=== PATIENT | male | born 1960 | race Caucasian/White ===

== ENCOUNTER → 2019-12-16 10:25 | Outpatient (CLI) | payer OTHER, SELFPAY ==
--- NOTE | 2019-12-16 10:27 | DI.RAD.S_ITS ---
PROCEDURE: XR KNEE LT 3V INDICATIONS: left knee pain TECHNIQUE: 3 views of the knee were acquired. COMPARISON: None. FINDINGS: Bones: No fractures or dislocations. No suspicious bony lesions. Soft tissues: Small, nonspecific suprapatellar joint effusion. No suspicious soft tissue calcifications. IMPRESSION: No fracture. No osseous lesion. If symptoms and/or clinical suspicion for pathology persists, further assessment with repeat radiographs (7-10 days) or advanced imaging (e.g. CT, MRI or bone scan) may be helpful. Dictated by: Sade Candelario MD, PhD on 12/16/2019 at 15:43 Approved by: Sade Candelario MD, PhD on 12/16/2019 at 15:53
== END ==
PROVIDERS: PCP Family Medicine; Referring Provider Nurse Practitioner Family; Visit Provider Nurse Practitioner Family
DX: S89.92XA Unspecified injury of left lower leg, initial encounter (principal); M25.562 Pain in left knee; X58.XXXA Exposure to other specified factors, initial encounter
CPT/HCPCS: 73562

== ENCOUNTER 2020-03-01 15:15 | Outpatient (RCR) | payer OTHER, SELFPAY ==
--- NOTE | 2020-01-29 16:45 | PT.OIE ---
Current Diagnoses Unspecified injury of left lower leg, initial encounter (01/29/20) Past Medical History (Last Updated 12/16/19 @ 10:08 by RAYMON Robles) Left knee injury (Acute) Visit Care Team Role Provider Type Fito Rodriguez MD Primary Care Provider Physician Specialty: [facility] Address: [address] [place] [address], [id number] Email: [email or web address] RAYMON Robles Attending Provider Advanced Guest Attendant Referring Provider Specialty: [facility] Address: [address] [place] [address], [id number] Email: [email or web address] Physical Therapy Initial Evaluation PT-OP-A Visit Information Start: 01/29/20 14:17 Freq: Status: Active Protocol: Document 01/29/20 15:15 HH (Rec: 01/29/20 16:44 [email or web address]) Out-Patient Physical Therapy Visit Information Visit Information Visit Type Initial Evaluation Visit Start Time 15:15 Visit Stop Time 16:00 Total Visit Minutes 45 Visit Number 08/02 Number of CONCERT OR LECTURE HALL MANAGER Visits 0 Evaluation Information Evaluation Date 01/29/20 PT-OP-B Current Condition Start: 01/29/20 14:17 Freq: Status: Active Protocol: Document 01/29/20 15:15 HH (Rec: 01/29/20 16:44 [email or web address]) Current Condition History of Current Condition Onset Date early December, Current Complaints L knee pain, difficulty in walking History of Current Condition Pt is a 59 yo active gentleman here for his new onset of L knee pain. Pt injured his L knee and heard a pop after jumping from 1 level to another at his friend's garden in early December. Pt stated his knee swelled up immediately for couple days with ROM loss. Pt described his pain 2/10 located mostly posterior and deep inside on the knee. Prolonged walking and standing tend to increase his pain up to 3-4/10. He denied buckling/ unsteadiness but mostly pressure and stiffness. 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 Pt started biking again 2 weeks since his symptoms and ROM have been slowly progressing. Prior Treatments and Tests X-ray from last month showed negative findings. No fracture. No osseous lesion. If symptoms and/or clinical suspicion for pathology persists, further assessment with repeat radiographs (7-10 days) or advanced imaging (e.g. CT, MRI or bone scan) may be helpful. Treatment Goals Patient/Caregiver Goals 1. to reduce his swelling and be pain free again 2. to be able to walk 2-3 miles again everyday Personal Factors Other Personal Factors That May Effect depression Therapy/Recovery PT-OP-C Subjective Start: 01/29/20 14:17 Freq: Status: Active Protocol: Document 01/29/20 15:15 HH (Rec: 01/29/20 16:44 [email or web address]) Patient Questionnaires Lower Extremity Functional Scale LEFS Score 52 LEFS Impairment 20 to 39% Impaired (Score 48- 62) OP-PT Pain Assessment Location L knee Pain Location Details L knee Intensity 2 Scale Used Numeric (0 - 10) Description Aching,Pressure Frequency Frequent Pain Aggravating Factors Activity,Exercise,Standing, Walking Pain Alleviating Factors Inactivity PT-OP-D Balance Start: 01/29/20 14:17 Freq: Status: Active Protocol: Document 01/29/20 15:15 HH (Rec: 01/29/20 16:44 [email or web address]) Balance Tests Single Limb Standing Single Limb- Right >60 Single Limb- Left 32 Other Other Balance Tests Performed excessive ankle strategy noted on L PT-OP-E Functional Tests Start: 01/29/20 14:17 Freq: Status: Active Protocol: Document 01/29/20 15:15 HH (Rec: 01/29/20 16:44 [email or web address]) Functional Tests Other star excursion Comment standing on RLE: fwd= 21, lateral= 30; on LLE: fwd= 20 , lateral=23 PT-OP-H Neuro Start: 01/29/20 14:17 Freq: Status: Active Protocol: Document 01/29/20 15:15 HH (Rec: 01/29/20 16:44 [email or web address]) Deep Tendon Reflex & Clonus Assessment Deep Tendon Reflex Bilateral Achilles Deep Tendon Reflex 2+ Normal Bilateral Patellar Deep Tendon Reflex 2+ Normal PT-OP-J Posture/Palpation/Skin Start: 01/29/20 14:17 Freq: Status: Active Protocol: Document 01/29/20 15:15 (Rec: 01/29/20 16:44 [email or web address]) Skin Assessment Circumference Measurement R knee Comments 5cm above knee= 14, patella= 13.5, tibial tub= 12.5 L knee Comments 5cm above knee= 14.5, patella= 14, tibial tub= 12.7 PT-OP-K Range of Motion Start: 01/29/20 14:17 Freq: Status: Active Protocol: Document 01/29/20 15:15 HH (Rec: 01/29/20 16:44 [email or web address]) Knee Goniometric Range of Motion Knee Right Knee ROM WFL Yes Flexion Active (degrees) 135 Extension Active (degrees) 4 Left Knee ROM WFL No Patient Position Supine Flexion Active (degrees) 115 Extension Active (degrees) 8 Knee ROM Limitations Knee ROM Limitations Pain Comments pain noted for end range L knee flexion and extensoin PT-OP-L Special Tests Start: 01/29/20 14:17 Freq: Status: Active Protocol: Document 01/29/20 15:15 HH (Rec: 01/29/20 16:44 [email or web address]) Special Tests Knee Special Tests David's Test Results -ve Anterior Draw Test Results -ve Apley's Compression Test Results -ve Albert Test Test Results -ve Thessaly Test 20 Degrees Test Results -ve Thessaly Test 5 Degrees Test Results -ve Varus- 25 Degrees Test Results -ve Varus- 0 Degrees Test Results -ve Valgus- 25 Degrees Test Results -ve Valgus- 0 Degrees Test Results -ve PT-OP-M Strength Start: 01/29/20 14:17 Freq: Status: Active Protocol: Document 01/29/20 15:15 HH (Rec: 01/29/20 16:44 [email or web address]) Knee Strength Knee Manual Muscle Testing Right Flexion (S2) 5 Normal Extension (L3) 5 Normal Left Flexion (S2) 4+ Good+ Extension (L3) 4+ Good+ PT-OP-Q Treatments Start: 01/29/20 14:17 Freq: Status: Active Protocol: Document 01/29/20 15:15 HH (Rec: 01/29/20 16:44 [email or web address]) Therapeutic Exercises Supine Exercises heel slide Side left Comments for HEP TkE Side left Equipment Used towel underneath heel Comments for HEP Sidelying Exercises clamshell Side left Comments for hep Standing Exercises toe tap Standing Exercise Name SLS Side left Comments for hEP Manual Therapy Treatment Soft Tissue Mobilization L knee Body Location anterior and posterior Mobilization Type Rolling,Sustained Pressure, Trigger Point Release Intensity/Depth Deep Comments prone and supine position. upward stroke and rolling for swelling management. pt's knee flexion improved to 125 degrees Joint Mobilizations tibial IR Joint MWM and knee joint Direction IR Grade III Body Position Supine Reps/Duration 10 reps x 3 Comments knee flexion with tibial IR PT-OP-T Assessment and Plan Start: 01/29/20 14:17 Freq: Status: Active Protocol: Document 01/29/20 15:15 HH (Rec: 01/29/20 16:44 [email or web address]) Physical Therapy Assessment Rehab Potential Rehabilitation Potential Excellent Evaluation Complexity Number of Personal Factors/Comorbidities 0 Number of Body Systems Impaired 1-2 Clinical Presentation at Evaluation Stable Impairments Impairments Activity Tolerance,Balance, Functional Activities, Functional Mobility,Gait,Pain, Posture,ROM,Soft Tissue Mobility,Strength Goals return to sports Impairment pain with prolonged walking and hiking Detention Goal (LTG) pt will be able to return to his daily walking rountine for 2-3 miles a day without discomfort. LTG Duration 4 weeks balance Impairment dec single leg balance noted Short Term Goal (STG) pt will increase his SL balance >50 seconds STG Duration 2 weeks Detention Goal (LTG) Pt will improve his star excursion by 4 inches for both fwd and lateral directions so he can walk on uneven surface safely without discomfort LTG Duration 4weeks ROM Impairment pt lacks of knee AROM Detention Goal (LTG) Pt will regain full AROM for his L knee so he can optimize his gait mechanics with improved heel strike and push off. LTG Duration 4 weeks LEFS Impairment pt scores 52 on LEFS Detention Goal (LTG) Pt will score 70 or greater for LEFS to improve his quality of life LTG Duration 4 weeks Assessment Summary Assessment This is a low complexity evaluation for this healthy and active 59yo male here for L knee pain after he landed awkwardly from a jump in early December. Pt presents a possible minor meniscal strain/ tear because this PT was unable to reproduce his pain with all special tests except pain at end range of knee flexion and extension. There's noticeable swelling at L knee and poor single leg balance noted. However, pt's knee AROM improved immediately after STM for swelling management. Prescribed knee ROM, SLS, clamshell HEP for pt and pt will benefit from skilled therapy for swelling management, return to sports training, improving flexiblity , balance and strength in order for him to return to his daily 2-3 miles walking without discomfort. Physical Therapy Plan Frequency and Duration Frequency of Treatment Every Other Week Duration of Treatment 4 weeks Plan of Care Start Date 01/29/20 Plan of Care End Date 02/28/20 Therapeutic Interventions Therapeutic Interventions Balance Training,Gait Training ,Home Exercise Program,Joint Mobilizations,Manual Therapy, Neuromuscular Re-education, Patient/Caregiver Education, Self-Care/Home Management,Soft Tissue Mobilization,Taping, Therapeutic Activities, Therapeutic Exercises Modalities Cold Pack/Ice Massage,Electric Stimulation,Hot Packs Next Visit Focus/Plan Next Note Type Treatment Note Next Visit Plan check tolerance ROM, biking tibial IR MWM single leg strengthening SLS
--- NOTE | 2020-01-29 16:45 | PT.OPPOC ---
Physical, Occupational & Speech Therapy At [facility] Current Diagnoses Unspecified injury of left lower leg, initial encounter (01/29/20) Visit Care Team Role Provider Type Fito Rodriguez MD Primary Care Provider Physician Specialty: [facility] Practice Address: [address] [place] [address], [id number] Email: [email or web address] RAYMON Robles Attending Provider Advanced Supervisor Heavy Equipment Referring Provider Specialty: [facility] Address: [address] [place] [address], [address] Email: [email or web address] Plan Of Care PT-OP-T Assessment and Plan Start: 01/29/20 14:17 Freq: Status: Active Protocol: Document 01/29/20 15:15 (Rec: 01/29/20 16:44 [email or web address]) Physical Therapy Assessment Rehab Potential Rehabilitation Potential Excellent Evaluation Complexity Number of Personal Factors/Comorbidities 0 Number of Body Systems Impaired 1-2 Clinical Presentation at Evaluation Stable Impairments Impairments Activity Tolerance,Balance, Functional Activities, Functional Mobility,Gait,Pain, Posture,ROM,Soft Tissue Mobility,Strength Goals return to sports Impairment pain with prolonged walking and hiking Snf Goal (LTG) pt will be able to return to his daily walking rountine for 2-3 miles a day without discomfort. LTG Duration 4 weeks balance Impairment dec single leg balance noted Short Term Goal (STG) pt will increase his SL balance >50 seconds STG Duration 2 weeks Canoe Maker Goal (LTG) Pt will improve his star excursion by 4 inches for both fwd and lateral directions so he can walk on uneven surface safely without discomfort LTG Duration 4weeks ROM Impairment pt lacks of knee AROM Snf Goal (LTG) Pt will regain full AROM for his L knee so he can optimize his gait mechanics with improved heel strike and push off. LTG Duration 4 weeks LEFS Impairment pt scores 52 on LEFS Canoe Maker Goal (LTG) Pt will score 70 or greater for LEFS to improve his quality of life LTG Duration 4 weeks Assessment Summary Assessment This is a low complexity evaluation for this healthy and active 59yo male here for L knee pain after he landed awkwardly from a jump in early December. Pt presents a possible minor meniscal strain/ tear because this PT was unable to reproduce his pain with all special tests except pain at end range of knee flexion and extension. There's noticeable swelling at L knee and poor single leg balance noted. However, pt's knee AROM improved immediately after STM for swelling management. Prescribed knee ROM, SLS, clamshell HEP for pt and pt will benefit from skilled therapy for swelling management, return to sports training, improving flexiblity , balance and strength in order for him to return to his daily 2-3 miles walking without discomfort. Physical Therapy Plan Frequency and Duration Frequency of Treatment Every Other Week Duration of Treatment 4 weeks Plan of Care Start Date 01/29/20 Plan of Care End Date 02/28/20 Therapeutic Interventions Therapeutic Interventions Balance Training,Gait Training ,Home Exercise Program,Joint Mobilizations,Manual Therapy, Neuromuscular Re-education, Patient/Caregiver Education, Self-Care/Home Management,Soft Tissue Mobilization,Taping, Therapeutic Activities, Therapeutic Exercises Modalities Cold Pack/Ice Massage,Electric Stimulation,Hot Packs Next Visit Focus/Plan Next Note Type Treatment Note Next Visit Plan check tolerance ROM, biking tibial IR MWM single leg strengthening SLS Plan of Care Dates Plan of Care Start Date 01/29/20 Plan of Care End Date 02/28/20 Electronically Signed by: Joy Trevino, PT 01/29/20 1280 Please Sign and Return: I have reviewed this Plan of Care and certify that the skilled therapy services above are required to meet the patient?s needs. Physician Signature Date Printed Name and Credentials Clinical Instructor Signature Printed Name and Credentials
--- NOTE | 2020-02-11 18:09 | PT.OTN ---
Current Diagnoses Unspecified injury of left lower leg, initial encounter (02/11/20) Physical Therapy Treatment Note PT-OP-A Visit Information Start: 01/29/20 14:17 Freq: Status: Active Protocol: Document 02/11/20 18:01 [facility] (Rec: 02/11/20 18:09 [facility] [email or web address]) Out-Patient Physical Therapy Visit Information Visit Information Visit Type Treatment Note Visit Start Time 16:47 Visit Stop Time 17:32 Total Visit Minutes 45 Visit Number 09/02 Number of HAND ALTERATIONS SEAMSTRESS Visits 0 PT-OP-B Current Condition Start: 01/29/20 14:17 Freq: Status: Active Protocol: Document 01/29/20 15:15 HH (Rec: 01/29/20 16:44 HH [email or web address]) Current Condition History of Current Condition Onset Date early December, Current Complaints L knee pain, difficulty in walking History of Current Condition Pt is a 59 yo active gentleman here for his new onset of L knee pain. Pt injured his L knee and heard a pop after jumping from 1 level to another at his friend's garden in early December. Pt stated his knee swelled up immediately for couple days with ROM loss. Pt described his pain 2/10 located mostly posterior and deep inside on the knee. Prolonged walking and standing tend to increase his pain up to 3-4/10. He denied buckling/ unsteadiness but mostly pressure and stiffness. 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 Pt started biking again 2 weeks since his symptoms and ROM have been slowly progressing. Prior Treatments and Tests X-ray from last month showed negative findings. No fracture. No osseous lesion. If symptoms and/or clinical suspicion for pathology persists, further assessment with repeat radiographs (7-10 days) or advanced imaging (e.g. CT, MRI or bone scan) may be helpful. Treatment Goals Patient/Caregiver Goals 1. to reduce his swelling and be pain free again 2. to be able to walk 2-3 miles again everyday Personal Factors Other Personal Factors That May Effect depression Therapy/Recovery PT-OP-C Subjective Start: 01/29/20 14:17 Freq: Status: Active Protocol: Document 02/11/20 18:01 [facility] (Rec: 02/11/20 18:09 [facility] [email or web address]) OP-PT Subjective Patient Comments Patient Comments Pt reports he is doing better but still has difficulty with knee ext. R achilles is giving him trouble and he is massaging that but that seems to affect his gait also. PT-OP-D Balance Start: 01/29/20 14:17 Freq: Status: Active Protocol: Document 01/29/20 15:15 HH (Rec: 01/29/20 16:44 [email or web address]) Balance Tests Single Limb Standing Single Limb- Right >60 Single Limb- Left 32 Other Other Balance Tests Performed excessive ankle strategy noted on L PT-OP-E Functional Tests Start: 01/29/20 14:17 Freq: Status: Active Protocol: Document 01/29/20 15:15 HH (Rec: 01/29/20 16:44 [email or web address]) Functional Tests Other star excursion Comment standing on RLE: fwd= 21, lateral= 30; on LLE: fwd= 20 , lateral=23 PT-OP-H Neuro Start: 01/29/20 14:17 Freq: Status: Active Protocol: Document 01/29/20 15:15 HH (Rec: 01/29/20 16:44 [email or web address]) Deep Tendon Reflex & Clonus Assessment Deep Tendon Reflex Bilateral Achilles Deep Tendon Reflex 2+ Normal Bilateral Patellar Deep Tendon Reflex 2+ Normal PT-OP-J Posture/Palpation/Skin Start: 01/29/20 14:17 Freq: Status: Active Protocol: Document 01/29/20 15:15 HH (Rec: 01/29/20 16:44 [email or web address]) Skin Assessment Circumference Measurement R knee Comments 5cm above knee= 14, patella= 13.5, tibial tub= 12.5 L knee Comments 5cm above knee= 14.5, patella= 14, tibial tub= 12.7 PT-OP-K Range of Motion Start: 01/29/20 14:17 Freq: Status: Active Protocol: Document 01/29/20 15:15 HH (Rec: 01/29/20 16:44 [email or web address]) Knee Goniometric Range of Motion Knee Right Knee ROM WFL Yes Flexion Active (degrees) 135 Extension Active (degrees) 4 Left Knee ROM WFL No Patient Position Supine Flexion Active (degrees) 115 Extension Active (degrees) 8 Knee ROM Limitations Knee ROM Limitations Pain Comments pain noted for end range L knee flexion and extensoin PT-OP-L Special Tests Start: 01/29/20 14:17 Freq: Status: Active Protocol: Document 01/29/20 15:15 HH (Rec: 01/29/20 16:44 HH [email or web address]) Special Tests Knee Special Tests David's Test Results -ve Anterior Draw Test Results -ve Apley's Compression Test Results -ve Albert Test Test Results -ve Thessaly Test 20 Degrees Test Results -ve Thessaly Test 5 Degrees Test Results -ve Varus- 25 Degrees Test Results -ve Varus- 0 Degrees Test Results -ve Valgus- 25 Degrees Test Results -ve Valgus- 0 Degrees Test Results -ve PT-OP-M Strength Start: 01/29/20 14:17 Freq: Status: Active Protocol: Document 01/29/20 15:15 HH (Rec: 01/29/20 16:44 HH [email or web address]) Knee Strength Knee Manual Muscle Testing Right Flexion (S2) 5 Normal Extension (L3) 5 Normal Left Flexion (S2) 4+ Good+ Extension (L3) 4+ Good+ PT-OP-Q Treatments Start: 01/29/20 14:17 Freq: Status: Active Protocol: Document 02/11/20 18:01 [facility] (Rec: 02/11/20 18:09 [facility] [email or web address]) Therapeutic Exercises Supine Exercises jos test Supine Exercise Name stretch Side left Reps/Minutes 45 sec heel slide Side left Reps/Minutes 3 Comments reviewed for HEP TkE Side left Equipment Used towel underneath heel Reps/Minutes 3 Comments reviewed for HEP Prone Exercises quad stretch Side left Reps/Minutes 30 sec Comments w/strap TKE Side left Reps/Minutes 5sec x15 Sidelying Exercises quad stretch Side left Equipment Used strap Reps/Minutes 30sec clamshell Side left Equipment Used L2 Reps/Minutes 15 Comments for hep Standing Exercises TKE Side left Equipment Used L3 Reps/Minutes 20 Manual Therapy Treatment Soft Tissue Mobilization calf Body Location L Mobilization Type Rolling,Strumming,Sustained Pressure Intensity/Depth Moderate Body Position Supine VMO Body Location L med border Mobilization Type Strumming Intensity/Depth Moderate Body Position Supine HS Body Location L w/quad sets & knee flex Mobilization Type Rolling,Strumming,Sustained Pressure Intensity/Depth Moderate Body Position Supine Joint Mobilizations Tibfem Direction PA Grade III PF Direction sup, inf, med Grade III tibial IR Joint MWM and knee joint Direction IR Grade III Body Position Supine Comments knee flexion with tibial IR Self-Care/Home Management Treatment Education Other Education use of foam roll, rolling pin & tennis ball for ITB , HS & Calf B PT-OP-T Assessment and Plan Start: 01/29/20 14:17 Freq: Status: Active Protocol: Document 02/11/20 18:01 [facility] (Rec: 02/11/20 18:09 [facility] [email or web address]) Physical Therapy Assessment Goals return to sports Impairment pain with prolonged walking and hiking Reel Winder Goal (LTG) pt will be able to return to his daily walking rountine for 2-3 miles a day without discomfort. LTG Duration 4 weeks balance Impairment dec single leg balance noted Short Term Goal (STG) pt will increase his SL balance >50 seconds STG Duration 2 weeks Penitentiary Goal (LTG) Pt will improve his star excursion by 4 inches for both fwd and lateral directions so he can walk on uneven surface safely without discomfort LTG Duration 4weeks ROM Impairment pt lacks of knee AROM Penitentiary Goal (LTG) Pt will regain full AROM for his L knee so he can optimize his gait mechanics with improved heel strike and push off. LTG Duration 4 weeks LEFS Impairment pt scores 52 on LEFS Reel Winder Goal (LTG) Pt will score 70 or greater for LEFS to improve his quality of life LTG Duration 4 weeks Assessment Summary Assessment Pt was able perform HEP exercises given by last therapists well and tband was added to clamshells. Pt encouraged to biek providied it was not painful. Pt started lacking about 10 deg ext and flex to about 110 and imrpoved to lacking only about 2 deg ext and about 120 deg flex after manual treatment. His gait was significantly improved after manual treatment with improved push off. Physical Therapy Plan Frequency and Duration Frequency of Treatment Every Other Week Duration of Treatment 4 weeks Plan of Care Start Date 01/29/20 Plan of Care End Date 02/28/20 Next Visit Focus/Plan Next Note Type Treatment Note Next Visit Plan check tolerance ROM, biking tibial IR MWM single leg strengthening SLS Work on tib fem jt mobility
--- NOTE | 2020-03-01 16:27 | PT.OPPOC ---
Physical, Occupational & Speech Therapy At [facility] Current Diagnoses Unspecified injury of left lower leg, initial encounter (03/01/20) Visit Care Team Role Provider Type Fito Rodriguez MD Primary Care Provider Physician Specialty: [facility] Practice Address: [address] [place] [address], [id number] Email: [email or web address] RAYMON Robles Attending Provider Advanced Brake Repair Supervisor Referring Provider Specialty: [facility] Address: [address] [place] [address], [id number] Email: [email or web address] Plan Of Care PT-OP-T Assessment and Plan Start: 01/29/20 14:17 Freq: Status: Active Protocol: Document 03/01/20 15:17 HH (Rec: 03/01/20 16:25 HH [id number]) Physical Therapy Assessment Goals return to sports Impairment pain with prolonged walking and hiking Chin Strap Cutter Goal (LTG) 03/01 goal mile pt has been walking couple miles during the week. LTG Duration 4 weeks balance Impairment dec single leg balance noted Short Term Goal (STG) pt will increase his SL balance >50 seconds STG Duration 2 weeks Chin Strap Cutter Goal (LTG) Pt will improve his star excursion by 4 inches for both fwd and lateral directions so he can walk on uneven surface safely without discomfort LTG Duration 4 weeks ROM Impairment pt lacks of knee AROM Short Term Goal (STG) 03/01 Pt L knee flexion= 130, ext = 4 actively. Jail Goal (LTG) Pt will regain full AROM for his L knee so he can optimize his gait mechanics with improved heel strike and push off. LTG Duration 4 weeks LEFS Impairment pt scores 52 on LEFS Jail Goal (LTG) Pt will score 70 or greater for LEFS to improve his quality of life LTG Duration 4 weeks Progress Towards Goals Progress Towards Goals Progressing Toward Goals Assessment Summary Assessment Pt has shown improved knee ROM and strength with minimal pain. Pt cont to have dec push off and lack of knee extension during stance phase. Tx focused on TKE, end range knee flexion, gait mechanics. he showed good understanding and requested to be d/c from PT d/t good progress and high deductible. Physical Therapy Plan Discharge Physical Therapy Discharge Reasons Patient Request Plan of Care Dates Plan of Care Start Date 01/29/20 Plan of Care End Date 02/28/20 Electronically Signed by: Joy Trevino, PT 03/01/20 [id number] Please Sign and Return: I have reviewed this Plan of Care and certify that the skilled therapy services above are required to meet the patient?s needs. Physician Signature Date Printed Name and Credentials Clinical Instructor Signature Printed Name and Credentials
--- NOTE | 2020-03-01 16:27 | PT.OTN ---
Current Diagnoses Unspecified injury of left lower leg, initial encounter (03/01/20) Physical Therapy Treatment Note PT-OP-A Visit Information Start: 01/29/20 14:17 Freq: Status: Active Protocol: Document 03/01/20 15:17 HH (Rec: 03/01/20 16:25 [id number]) Out-Patient Physical Therapy Visit Information Visit Information Visit Type Treatment Note Visit Start Time 15:17 Visit Stop Time 16:03 Total Visit Minutes 46 Visit Number 09/30 Number of CORPORATE DEVELOPMENT INTERN Visits 0 PT-OP-B Current Condition Start: 01/29/20 14:17 Freq: Status: Active Protocol: Document 01/29/20 15:15 HH (Rec: 01/29/20 16:44 HH [email or web address]) Current Condition History of Current Condition Onset Date early December, Current Complaints L knee pain, difficulty in walking History of Current Condition Pt is a 59 yo active gentleman here for his new onset of L knee pain. Pt injured his L knee and heard a pop after jumping from 1 level to another at his friend's garden in early December. Pt stated his knee swelled up immediately for couple days with ROM loss. Pt described his pain 2/10 located mostly posterior and deep inside on the knee. Prolonged walking and standing tend to increase his pain up to 3-4/10. He denied buckling/ unsteadiness but mostly pressure and stiffness. 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 Pt started biking again 2 weeks since his symptoms and ROM have been slowly progressing. Prior Treatments and Tests X-ray from last month showed negative findings. No fracture. No osseous lesion. If symptoms and/or clinical suspicion for pathology persists, further assessment with repeat radiographs (7-10 days) or advanced imaging (e.g. CT, MRI or bone scan) may be helpful. Treatment Goals Patient/Caregiver Goals 1. to reduce his swelling and be pain free again 2. to be able to walk 2-3 miles again everyday Personal Factors Other Personal Factors That May Effect depression Therapy/Recovery PT-OP-C Subjective Start: 01/29/20 14:17 Freq: Status: Active Protocol: Document 03/01/20 15:17 HH (Rec: 03/01/20 16:25 [id number]) OP-PT Subjective Patient Comments Patient Comments My ROM is getting better and swelling has improved. I still walk like a bit stiff. Patient Reported Progress Improving PT-OP-D Balance Start: 01/29/20 14:17 Freq: Status: Active Protocol: Document 01/29/20 15:15 HH (Rec: 01/29/20 16:44 [email or web address]) Balance Tests Single Limb Standing Single Limb- Right >60 Single Limb- Left 32 Other Other Balance Tests Performed excessive ankle strategy noted on L PT-OP-E Functional Tests Start: 01/29/20 14:17 Freq: Status: Active Protocol: Document 01/29/20 15:15 HH (Rec: 01/29/20 16:44 [email or web address]) Functional Tests Other star excursion Comment standing on RLE: fwd= 21, lateral= 30; on LLE: fwd= 20 , lateral=23 PT-OP-H Neuro Start: 01/29/20 14:17 Freq: Status: Active Protocol: Document 01/29/20 15:15 HH (Rec: 01/29/20 16:44 [email or web address]) Deep Tendon Reflex & Clonus Assessment Deep Tendon Reflex Bilateral Achilles Deep Tendon Reflex 2+ Normal Bilateral Patellar Deep Tendon Reflex 2+ Normal PT-OP-J Posture/Palpation/Skin Start: 01/29/20 14:17 Freq: Status: Active Protocol: Document 03/01/20 16:26 HH (Rec: 03/01/20 16:26 [id number]) Skin Assessment Circumference Measurement L knee Comments 5cm above knee= 14, patella= 14, tibial tub= 12.5 PT-OP-K Range of Motion Start: 01/29/20 14:17 Freq: Status: Active Protocol: Document 03/01/20 16:26 HH (Rec: 03/01/20 16:26 [id number]) Knee Goniometric Range of Motion Knee Right Knee ROM WFL Yes Flexion Active (degrees) 135 Extension Active (degrees) 4 Left Knee ROM WFL No Patient Position Supine Flexion Active (degrees) 130 Extension Active (degrees) 4 PT-OP-L Special Tests Start: 01/29/20 14:17 Freq: Status: Active Protocol: Document 01/29/20 15:15 HH (Rec: 01/29/20 16:44 [email or web address]) Special Tests Knee Special Tests David's Test Results -ve Anterior Draw Test Results -ve Apley's Compression Test Results -ve Albert Test Test Results -ve Thessaly Test 20 Degrees Test Results -ve Thessaly Test 5 Degrees Test Results -ve Varus- 25 Degrees Test Results -ve Varus- 0 Degrees Test Results -ve Valgus- 25 Degrees Test Results -ve Valgus- 0 Degrees Test Results -ve PT-OP-M Strength Start: 01/29/20 14:17 Freq: Status: Active Protocol: Document 01/29/20 15:15 (Rec: 01/29/20 16:44 [email or web address]) Knee Strength Knee Manual Muscle Testing Right Flexion (S2) 5 Normal Extension (L3) 5 Normal Left Flexion (S2) 4+ Good+ Extension (L3) 4+ Good+ PT-OP-Q Treatments Start: 01/29/20 14:17 Freq: Status: Active Protocol: Document 03/01/20 15:17 HH (Rec: 03/01/20 16:25 [id number]) Therapeutic Exercises Supine Exercises heel slide Side left Reps/Minutes 3 Comments reviewed for HEP TkE Side left Equipment Used towel underneath heel Reps/Minutes 3 Comments reviewed for HEP Standing Exercises toe push off Standing Exercise Name preswing phase, with big toe extension Side left Comments staggered stance for HEP TKE Side left Equipment Used L3 Reps/Minutes 20 Comments followed by step over with RLE . Manual Therapy Treatment Soft Tissue Mobilization calf Body Location L Mobilization Type Rolling,Strumming,Sustained Pressure Intensity/Depth Moderate Body Position Supine VMO Body Location L med border Mobilization Type Strumming Intensity/Depth Moderate Body Position Supine Joint Mobilizations Tibfem Direction PA Grade III PF Direction sup, inf, med Grade III tibial IR Joint MWM and knee joint Direction IR Grade III Body Position Supine Comments knee flexion with tibial IR PT-OP-T Assessment and Plan Start: 01/29/20 14:17 Freq: Status: Active Protocol: Document 03/01/20 15:17 (Rec: 03/01/20 16:25 [id number]) Physical Therapy Assessment Goals return to sports Impairment pain with prolonged walking and hiking Roller Skate Assembler Goal (LTG) 03/01 goal mile pt has been walking couple miles during the week. LTG Duration 4 weeks balance Impairment dec single leg balance noted Short Term Goal (STG) pt will increase his SL balance >50 seconds STG Duration 2 weeks Roller Skate Assembler Goal (LTG) Pt will improve his star excursion by 4 inches for both fwd and lateral directions so he can walk on uneven surface safely without discomfort LTG Duration 4 weeks ROM Impairment pt lacks of knee AROM Short Term Goal (STG) 03/01 Pt L knee flexion= 130, ext = 4 actively. Assisted Goal (LTG) Pt will regain full AROM for his L knee so he can optimize his gait mechanics with improved heel strike and push off. LTG Duration 4 weeks LEFS Impairment pt scores 52 on LEFS Assisted Goal (LTG) Pt will score 70 or greater for LEFS to improve his quality of life LTG Duration 4 weeks Progress Towards Goals Progress Towards Goals Progressing Toward Goals Assessment Summary Assessment Pt has shown improved knee ROM and strength with minimal pain. Pt cont to have dec push off and lack of knee extension during stance phase. Tx focused on TKE, end range knee flexion, gait mechanics. he showed good understanding and requested to be d/c from PT d/t good progress and high deductible. Physical Therapy Plan Discharge Physical Therapy Discharge Reasons Patient Request
--- NOTE | 2020-03-01 16:28 | PT.OPPOC ---
Physical, Occupational & Speech Therapy At [facility] Current Diagnoses Unspecified injury of left lower leg, initial encounter (03/01/20) Visit Care Team Role Provider Type Fito Rodriguez MD Primary Care Provider Physician Specialty: [facility] Practice Address: [address] [place] [address], [id number] Email: [email or web address] RAYMON Robles Attending Provider Advanced Toolroom Checker Referring Provider Specialty: [facility] Address: [address] [place] [address], [address] Email: [email or web address] Plan Of Care PT-OP-T Assessment and Plan Start: 01/29/20 14:17 Freq: Status: Active Protocol: Document 03/01/20 15:17 HH (Rec: 03/01/20 16:25 HH [id number]) Physical Therapy Assessment Goals return to sports Impairment pain with prolonged walking and hiking Trade Analyst Goal (LTG) 03/01 goal mile pt has been walking couple miles during the week. LTG Duration 4 weeks balance Impairment dec single leg balance noted Short Term Goal (STG) pt will increase his SL balance >50 seconds STG Duration 2 weeks Trade Analyst Goal (LTG) Pt will improve his star excursion by 4 inches for both fwd and lateral directions so he can walk on uneven surface safely without discomfort LTG Duration 4 weeks ROM Impairment pt lacks of knee AROM Short Term Goal (STG) 03/01 Pt L knee flexion= 130, ext = 4 actively. Intermediate Goal (LTG) Pt will regain full AROM for his L knee so he can optimize his gait mechanics with improved heel strike and push off. LTG Duration 4 weeks LEFS Impairment pt scores 52 on LEFS Intermediate Goal (LTG) Pt will score 70 or greater for LEFS to improve his quality of life LTG Duration 4 weeks Progress Towards Goals Progress Towards Goals Progressing Toward Goals Assessment Summary Assessment Pt has shown improved knee ROM and strength with minimal pain. Pt cont to have dec push off and lack of knee extension during stance phase. Tx focused on TKE, end range knee flexion, gait mechanics. he showed good understanding and requested to be d/c from PT d/t good progress and high deductible. Physical Therapy Plan Frequency and Duration Frequency of Treatment 1x/Week Duration of Treatment 1 visit Plan of Care Start Date 02/28/20 Plan of Care End Date 03/01/20 Therapeutic Interventions Therapeutic Interventions Balance Training,Gait Training ,Home Exercise Program,Joint Mobilizations,Manual Therapy, Neuromuscular Re-education, Patient/Caregiver Education, Self-Care/Home Management,Soft Tissue Mobilization,Taping, Therapeutic Activities, Therapeutic Exercises Discharge Physical Therapy Discharge Reasons Patient Request Plan of Care Dates Plan of Care Start Date 02/28/20 Plan of Care End Date 03/01/20 Electronically Signed by: Joy Trevino, PT 03/01/20 5725 Please Sign and Return: I have reviewed this Plan of Care and certify that the skilled therapy services above are required to meet the patient?s needs. Physician Signature Date Printed Name and Credentials Clinical Instructor Signature Printed Name and Credentials
== END 2020-03-03 08:31 ==
LOC: PHYS 15:15
PROVIDERS: PCP Family Medicine; Referring Provider Nurse Practitioner Family; Visit Provider Nurse Practitioner Family
DX: S89.92XA Unspecified injury of left lower leg, initial encounter (principal)
CPT/HCPCS: 97110; 97140; 97161

== ENCOUNTER → 2020-04-19 07:30 | Outpatient (CLI) | payer OTHER, SELFPAY ==
[2020-04-19 08:36] LABS: Add Manual Diff / Slide Review NO; Basophils Absolute Auto 100 /uL (0-100); Basophils Percent Auto 0.7 % (0-2); Eosinophils Absolute Auto 200 /uL (0-450); Eosinophils Percent Auto 2.3 % (2-4); Hematocrit 45.4 % (41-53); Hemoglobin 15.4 g/dL (13.5-17.5); Lymphocytes Absolute Auto 1500 /uL (1100-4500); Lymphocytes Percent Auto 21.4 % (25-40); Mean Corpuscular HGB Conc 33.9 % (30-36); Mean Corpuscular Hemoglobin 30.2 PG (26-34); Mean Corpuscular Volume 88.9 fL (80-100); Monocytes Absolute Auto 700 /uL (0-900); Neutrophils Absolute Auto 4700 /uL (1500-7000); Neutrophils Percent Auto 65.6 % (50-75); Platelet Count 264 X10^3/uL (150-400); Red Cell Distribution Width 13.4 % (11.6-14.8); White Blood Cell Count 7.1 X10^3/uL (4.5-11.0)
[2020-04-19 08:55] LABS: Alanine Aminotransferase 20 IU/L (<50); Albumin 4.3 g/dL (3.5-5.0); Albumin Globulin Ratio 1.3 (1.0-2.8); Alkaline Phosphatase 57 U/L (38-126); Aspartate Aminotransferase 27 IU/L (17-59); BUN Creatinine Ratio 16.5 (6-22); Bilirubin Total 0.7 mg/dL (0.2-1.3); Blood Urea Nitrogen 16 mg/dL (9-20); Calcium 9.5 mg/dL (8.4-10.2); Carbon Dioxide 33 mmol/L (22-32); Chloride 103 mmol/L (98-107); Cholesterol 194 mg/dL (140-199); Estimated Glomerular Filt Rate > 60.0 mL/min (>60); Globulin 3.3 g/dL (1.7-4.1); Glucose 95 mg/dL (70-100); HDL Cholesterol 67 mg/dL (40-60); HEMOLYSIS 16 (0-50); LDL Cholesterol Calculated 108 mg/dL (<100); Potassium 4.5 mmol/L (3.4-5.1); Sodium 140 mmol/L (137-145); Total Protein 7.6 g/dL (6.3-8.2); Triglycerides 93 mg/dL (35-150)
[2020-04-19 09:23] LABS: Prostate Specific Antigen Scrn 1.15 ng/mL (0.1-4.0)
== END ==
PROVIDERS: PCP Family Medicine; Referring Provider Family Medicine; Visit Provider Family Medicine
DX: Z00.00 Encounter for general adult medical examination without abnormal findings (principal); E78.2 Mixed hyperlipidemia; Z12.5 Encounter for screening for malignant neoplasm of prostate
CPT/HCPCS: 36415; 80053; 80061; 85025; G0103

== ENCOUNTER → 2020-05-24 09:19 | Outpatient (CLI) | payer OTHER, SELFPAY ==
[2020-05-24 10:32] LABS: COVID19 -Nasal RAPID Negative (Negative)
== END ==
PROVIDERS: PCP Family Medicine; Visit Provider Surgery
DX: Z11.59 Encounter for screening for other viral diseases (principal)
CPT/HCPCS: 87635; C9803

== ENCOUNTER 2020-05-25 11:59 | Day surgery (SDC) | payer OTHER, SELFPAY ==
[2020-05-25] MEDS: SODIUM CHLORIDE 0.9% 1,000 ML 200 ML IV (12:28)
[2020-05-25 12:29] VITALS: BP 135/88; PULSE 74; RESP 14; TEMP 36.4; O2SAT 97; BMI 22.4
--- NOTE | 2020-05-25 13:25 | P.HP_ITS ---
History of Present Illness History of Present Illness Date Patient Seen: 05/25/20 Time Patient Seen: 13:25 Chief complaint: [facility] [place] Narrative: This is a 59 yo man who is here for his first screening colonoscopy. He denies any symptoms of melena, hematochezia, unexplained abdominal pain, unexplained weight loss. He denies any known personal or family history of colon polyps or colon cancers. He says he is otherwise quite healthy. He denies any cardiac problems, or difficulties with sedation during his prior surgical procedures. ROS: Positive for depression, Thirteen system review is otherwise negative other than as mentioned below and in HPI. PE: GENERAL: Well groomed and cooperative. Appears stated age. Answers questions promptly and appropriately. Vital signs noted. HENT: Normocephalic, atraumatic. Hearing intact. EYES: Conjunctiva pink, sclera white, no periorbital swelling. CARDIOVASCULAR: Regular rate. No pedal edema. RESPIRATORY: Non-tachypneic, breathing comfortably on room air. GASTROINTESTINAL: Abdomen soft and non-distended GENITALURINARY: No flank tenderness. MUSCULOSKELETAL: Equal tone and mass bilaterally. SKIN: Warm, dry, soft, appropriate color for ethnicity. No other lesions, rashes, or wounds. NEURO: Alert and Oriented X 3. No gross sensory deficits, or cognitive issues. PSYCH: Appropriate affect and mood. Patient History Medical History Depression Elbow fracture Joint effusion, toe Left knee injury Family & Social History Family History Father Age: 100 Mental health problem Mother Heart disease Hypertension Mental health problem Stroke Social History: household members spouse Tobacco & Substance use: Smoking Status Never smoker alcohol intake current alcohol intake frequency a few times a week Substance Use Type does not use Meds Home Medications and Allergies Home Medications Medication Instructions Recorded Confirmed Type ibuprofen 200 mg tablet 400 mg PO Q6H PRN 12/16/19 05/25/20 History naproxen sodium 220 mg tablet 220 mg PO DAILY PRN tab 12/16/19 05/25/20 History Allergies Allergy/AdvReac Type Severity Reaction Status Date / Time No Known Drug Allergies Allergy Verified 05/25/20 12:22 Exam Vital Signs (past 8 hours): - 05/25/20 12:29 Temperature 97.6 F Pulse Rate 74 Respiratory Rate 14 Blood Pressure 135/88 Pulse Oximetry 97 Oxygen Delivery Method Room Air Assessment & Plan Assessment and plan (1) At average risk for colon cancer: Status: Acute Assessment & Plan narrative: Risks and benefits of screening colonoscopy and possible polypectomy were discussed with the patient including risk of bleeding, perforation, need for additional procedures, risks of anesthesia. The patient desires to proceed with the colonoscopy procedure. COVID-19 COVID-19 status: Negative Result date/Date tested (Pos, Neg/Pending): 05/24/20 Time Spent With Patient Time with patient: 15-24 minutes Quality VTE Deep Vein Thrombosis/Pulmonary Embolism Present on Admission: No
--- NOTE | 2020-05-25 13:28 | P.OP.ENDO_ITS ---
Operative Date/Time/Diagnoses Date of procedure: 05/25/20 Time of procedure: 13:36 Pre-op diagnosis: Average risk for colon cancer, 59-year-old never had a screening colonoscopy Post-op diagnosis: same (Normal colonoscopy) Procedure & Clinicians Study performed: Colonoscopy Procedural sedation performed by the endoscopist Same procedure as scheduled: Yes Indications: 59-year-old man never had a screening colonoscopy Surgeon: Jackelyn Maxwell Procedure Notes SCOAP/Timeout: Performed Procedure in detail: The patient was brought to the room and placed in left lateral decubitus position with all bony prominences padded. A time-out was performed and then the patient was given procedural sedation starting with 4 mg of Versed and 100 mcg of fentanyl. An additional 1 mg of Versed and 50 micro g of fentanyl were given during the procedure. Vitals were monitored throughout the procedure and remained stable. Once adequately sedated, the procedure was begun. A rectal exam was performed revealing no abnormalities. The colonoscope was then introduced to the rectum and advanced to the cecum in the usual fashion. The cecum was identified by the appendiceal orifice, the mucosal tri- fold, and the ileocecal valve. The scope was then retracted while rotating side to side and examining each mucosal fold. At the conclusion of the procedure retroflexion was performed and small grade 1-2 internal hemorrhoids without s tigmata of bleeding were seen. The scope was then withdrawn from the rectum the procedure was concluded. The patient tolerated the procedure well and was transferred to the PACU in stable condition. Scope withdrawal time: 8 Sedation minutes: 16 Findings: other findings (Normal colon) Specimen(s): none sent Complications: none Impression: Normal colon Post-procedure Recommendations: Colonscopy in 10 years Follow up: as needed Disposition: PACU
[2020-05-25] MEDS: MIDAZOLAM 5 MG/5 ML VIAL IV (13:34)
[2020-05-25] MEDS: fentaNYL 250 MCG/5 ML INJ IV (13:34)
[2020-05-25 13:55] VITALS: BP 118/82; PULSE 77; RESP 12; TEMP 37; O2SAT 97
[2020-05-25 14:01] VITALS: BP 127/80; PULSE 77; RESP 12; O2SAT 97
[2020-05-25 14:05] VITALS: BP 117/76; PULSE 76; RESP 12; O2SAT 97
[2020-05-25 14:10] VITALS: BP 120/76; PULSE 72; RESP 12; O2SAT 98
[2020-05-25 14:18] VITALS: BP 122/81; PULSE 71; RESP 16; TEMP 36.8; O2SAT 96
--- NOTE | 2020-05-25 14:28 | SUR.PHASEII ---
Pt up and ambulating getting dressed now. All dc instructions given and pt verbalizes understanding
--- NOTE | 2020-05-25 14:31 | SUR.PHASEII ---
Wes called but no answer, voicemail message left
== END 2020-05-25 14:51 | disposition home or self-care (01) ==
PROVIDERS: PCP Family Medicine; Referring Provider Surgery; Visit Provider Surgery
PROC: 0DJD8ZZ Inspection of Lower Intestinal Tract, Via Natural or Artificial Opening Endoscopic (ICD-10-PCS; CPT 45378; principal; 2020-05-25 13:00)
DX: Z12.11 Encounter for screening for malignant neoplasm of colon (principal); F32.9 Major depressive disorder, single episode, unspecified; K64.1 Second degree hemorrhoids
CPT/HCPCS: 45378; 99152; J2250; J3010

== ENCOUNTER → 2023-12-11 08:20 | Outpatient (CLI) | payer OTHER, SELFPAY ==
[2023-12-11 09:17] LABS: Add Manual Diff / Slide Review NO; Basophils Absolute Auto 0 /uL (0-100); Basophils Percent Auto 0.6 % (0-2); Eosinophils Absolute Auto 200 /uL (0-450); Eosinophils Percent Auto 2.3 % (2-4); Hematocrit 46.2 % (41-53); Lymphocytes Absolute Auto 1500 /uL (1100-4500); Lymphocytes Percent Auto 20.3 % (25-40); Mean Corpuscular HGB Conc 34.6 % (30-36); Mean Corpuscular Hemoglobin 30.6 PG (26-34); Mean Corpuscular Volume 88.5 fL (80-100); Monocytes Absolute Auto 700 /uL (0-900); Neutrophils Absolute Auto 5100 /uL (1500-7000); Neutrophils Percent Auto 67.8 % (50-75); Platelet Count 297 X10^3/uL (150-400); Red Blood Cell Count 5.22 X10^6/uL (4.5-5.9); Red Cell Distribution Width 13.3 % (11.6-14.8); White Blood Cell Count 7.4 X10^3/uL (4.5-11.0)
[2023-12-11 09:50] LABS: Alanine Aminotransferase 28 IU/L (<50); Albumin 4.6 g/dL (3.5-5.0); Albumin Globulin Ratio 1.6 (1.0-2.8); Alkaline Phosphatase 72 U/L (38-126); Aspartate Aminotransferase 29 IU/L (17-59); BUN Creatinine Ratio 14.4 (6-22); Bilirubin Total 0.9 mg/dL (0.2-1.3); Blood Urea Nitrogen 15 mg/dL (9-20); Calcium 9.5 mg/dL (8.4-10.2); Carbon Dioxide 30 mmol/L (22-32); Chloride 104 mmol/L (98-107); Cholesterol 245 mg/dL (140-199); Estimated Glomerular Filt Rate > 60 mL/min (>60); Globulin 2.9 g/dL (1.7-4.1); Glucose 90 mg/dL (80-110); HDL Cholesterol 73 mg/dL (40-60); HEMOLYSIS < 15 (0-50); LDL Cholesterol Calculated 148 mg/dL (<100); Potassium 4.8 mmol/L (3.4-5.1); Sodium 141 mmol/L (137-145); Total Protein 7.5 g/dL (6.3-8.2); Triglycerides 119 mg/dL (35-150)
[2023-12-11 10:17] LABS: TSH w/ Reflex to FT4 3.21 uIU/mL (0.47-4.68)
[2023-12-11 10:19] LABS: Prostate Specific Antigen Scrn 1.36 ng/mL (0.1-4.0)
[2023-12-11 10:44] LABS: Hep C Virus Ab w/Reflex Quant NEGATIVE s/c (NEGATIVE)
[2023-12-12 06:53] LABS: Apolipoprotein B 109 mg/dL (<90)
== END ==
PROVIDERS: PCP Family Medicine; Referring Provider Family Medicine; Visit Provider Family Medicine
DX: N32.81 Overactive bladder (principal); E78.2 Mixed hyperlipidemia; F32.9 Major depressive disorder, single episode, unspecified; Z12.5 Encounter for screening for malignant neoplasm of prostate
CPT/HCPCS: 36415; 80053; 80061; 82172; 84443; 85025; 86803; G0103

== ENCOUNTER → 2025-03-18 07:19 | Outpatient (CLI) | payer OTHER, SELFPAY ==
[2025-03-18 07:50] LABS: Add Manual Diff / Slide Review NO; Hematocrit 45.9 % (41-53); Hemoglobin 15.6 g/dL (13.5-17.5); Lymphocytes Absolute Auto 1600 /uL (1100-4500); Mean Corpuscular HGB Conc 33.9 % (30-36); Mean Corpuscular Hemoglobin 29.9 PG (26-34); Mean Corpuscular Volume 88.2 fL (80-100); Platelet Count 284 X10^3/uL (150-400)
[2025-03-18 08:05] LABS: Alanine Aminotransferase 24 IU/L (<50); Albumin 4.5 g/dL (3.5-5.0); Albumin Globulin Ratio 1.6 (1.0-2.8); Alkaline Phosphatase 61 U/L (38-126); Blood Urea Nitrogen 16 mg/dL (9-20); Calcium 9.6 mg/dL (8.4-10.2); Carbon Dioxide 27 mmol/L (22-32); Chloride 104 mmol/L (98-107); Cholesterol 217 mg/dL (140-199); Estimated Glomerular Filt Rate > 60 mL/min (>60); Globulin 2.9 g/dL (1.7-4.1); Glucose 92 mg/dL (70-99); HDL Cholesterol 73 mg/dL (40-60); HEMOLYSIS 27 (0-50); Potassium 4.8 mmol/L (3.4-5.1); Sodium 138 mmol/L (137-145); Total Protein 7.4 g/dL (6.3-8.2); Triglycerides 88 mg/dL (35-150)
[2025-03-18 08:33] LABS: TSH w/ Reflex to FT4 3.29 uIU/mL (0.47-4.68)
== END ==
PROVIDERS: PCP Family Medicine; Referring Provider Family Medicine; Visit Provider Family Medicine
DX: Z00.00 Encounter for general adult medical examination without abnormal findings (principal); E78.2 Mixed hyperlipidemia; F32.9 Major depressive disorder, single episode, unspecified; M72.2 Plantar fascial fibromatosis; L57.0 Actinic keratosis; Z12.5 Encounter for screening for malignant neoplasm of prostate
CPT/HCPCS: 36415; 80053; 80061; 82172; 84443; 85025; G0103

== ENCOUNTER 2025-04-19 10:19 | Observation (INO) | payer OTHER, SELFPAY ==
[2025-04-19] VITALS (21 sets, daily range): BP systolic 91–153; BP diastolic 54–118; PULSE 88–146; RESP 15–46; TEMP 36.2–38.4; O2SAT 82–97; BMI 23.9
--- NOTE | 2025-04-19 11:00 | EKG_ITS ---
[facility] [address] [address] Test Date: 2025-04-19 Pat Name: Marco Athens Department: [facility] Room: Gender: Male Bus Transportation Manager: JENNIFER : 1960 Requested By: Order Number: [id number] Reading MD: Bigg Christine MD Measurements Intervals [place] Rate: 102 P: 51 ID: [id number] QRS: 19 QRSD: 108 T: 41 QT: 336 QTc: 437 Interpretive Statements Sinus tachycardia Nonspecific T wave abnormality Electronically Signed On 04-19-2025 13:52:21 PDT by Bigg Christine MD
--- NOTE | 2025-04-19 11:00 | DI.RAD.S_ITS ---
PROCEDURE: XR CHEST 1V INDICATIONS: suspected sepsis TECHNIQUE: One view of the chest was acquired. COMPARISON: None. FINDINGS: Surgical changes and devices: None. Lungs and pleura: Lungs are clear. No pleural effusions or pneumothorax. Mediastinum: Mediastinal contours appear normal. Heart size is normal. Bones and chest wall: No suspicious bony lesions. Overlying soft tissues appear unremarkable. IMPRESSION: No acute cardiopulmonary abnormality is seen. Dictated by: Kun Jiang M.D. on 04/19/2025 at 11:00 Approved by: Kun Jiang M.D. on 04/19/2025 at 11:00
--- NOTE | 2025-04-19 11:12 | ED_ITS ---
HPI - Sepsis General Chief Complaint: Upper Respiratory Symptoms Mode of arrival: Ambulatory Source: patient Limitations: no limitations Evaluation Sepsis Screen: Possible Sepsis Risk Sepsis Infection Criteria Present: Suspected New Infection Sepsis Onset Time: 11:13 Narrative: 64-year-old gentleman history of anxiety, depression, dyslipidemia, presents with fever chills body aches temperature of 102and 104 since Sunday along with dry nonproductive cough unable to hold anything down with no decreased appetite. Patient denies nausea, vomiting, diarrhea, chest pain, shortness of breath, dyspnea on exertion, leg pain, leg swelling, back pain, abdominal pain, urinary complaints. Nothing makes it better or worse. Other than what is stated 14 point review system is negative. Review of Systems Review of Systems ROS Unobtainable: All systems reviewed & are unremarkable except as noted in HPI and below Patient History Medical History (Updated 04/19/25 @ 18:12 by Bigg Lay DO) Neoplasm of uncertain behavior of skin Plantar fasciitis of left foot OAB (overactive bladder) Elbow fracture Joint effusion, toe Depression Left knee injury Family History Father Age: 100 Mental health problem Mother Heart disease Hypertension Mental health problem Stroke Social History household members: spouse Smoking Status: Never smoker alcohol intake: current Smoking Status: Never smoker alcohol intake frequency: a few times a week Exam Narrative Exam Narrative: GENERAL: [64] year old patient appears stated age. Well-developed patient, in mild distress. HEAD: Atraumatic. Normocephalic. EYES: Pupils equal round and reactive. Extraocular motions intact. No scleral icterus. No injection or drainage. ENT: Nose without bleeding, purulent drainage. Throat without erythema, tonsillar hypertrophy or exudate. Airway patent. NECK: Trachea midline. Non tender CARDIOVASCULAR: Tachycardic Regular rate and rhythm without murmurs, gallops, or rubs. RESPIRATORY: Clear to auscultation. Breath sounds equal bilaterally. No wheezes, rales, or rhonchi. GASTROINTESTINAL: Abdomen soft, non-tender, nondistended. EXTREMITIES: No edema or joint tenderness. BACK: Nontender without deformity or crepitance. No flank tenderness. NEURO: AOx3. SKIN: No rash or erythema of visible areas Initial Vital Signs Initial Vital Signs: Vital Signs Temperature 98.7 F 04/19/25 10:54 Pulse Rate 111 H 04/19/25 10:54 Respiratory Rate 20 04/19/25 10:54 Blood Pressure 125/76 04/19/25 10:54 Pulse Oximetry 96 04/19/25 10:54 Oxygen Delivery Method Room Air 04/19/25 10:54 Course Orders Ordered: ED Orders 04/19/25 11:00 XR chest 1V Stat EKG-12 Lead Stat 04/19/25 11:05 Complete Blood Count AUTO DIFF Stat Comprehensive Metabolic Panel Stat Covid-19 + FLU A/B + RSV - PCR Stat Ictotest Urine Stat Lactate (Lactic Acid) Stat Lipase Stat PTT Partial Thromboplastin Jose C Stat Procalcitonin Stat Prothrombin Time INR Stat Urinalysis and Microscopic Stat 04/19/25 11:11 RT Consult Eval and Treat NOW 04/19/25 11:40 Blood Culture Stat Acetaminophen (Acetaminophen 325 Mg Tablet) 650 mg PO Q6H PRN PRN Reason: Fever/Mild Pain (1-3) Albuterol (Albuterol 2.5 Mg/3 Ml Neb (Adult)) 2.5 mg INH [id number] PRN PRN Reason: Shortness Of Breath Sodium Chloride (Normal Saline 0.9%) 1,000 mls @ 100 mls/hr IV CONT TICO Last Admin: 04/19/25 16:46 Dose: 100 mls/hr Documented By: DARIUS Azithromycin 500 mg/ Dextrose 250 mls @ 250 mls/hr IV Q24H [facility] Stop: 04/21/25 16:29 Last Admin: 04/19/25 16:46 Dose: 250 mls/hr Documented By: AKT Ceftriaxone Sodium 1,000 mg/ (Sodium Chloride) 100 mls @ 200 mls/hr IV Q24H [facility] Naloxone HCl (Naloxone 0.4 Mg/Ml Vial) 0.2 mg IV Q2MIN PRN PRN Reason: Opiate Reversal Ondansetron HCl (Ondansetron 4 Mg Odt) 4 mg PO NOW PRN PRN Reason: Nausea And Vomiting Ondansetron HCl (Ondansetron 4 Mg/2 Ml Inj) 4 mg IV Q8HR PRN PRN Reason: Nausea And Vomiting Discontinued Medications Acetaminophen (Acetaminophen 325 Mg Tablet) 975 mg PO NOW ONE Stop: 04/19/25 13:44 Last Admin: 04/19/25 14:13 Dose: 975 mg Documented By: DAVID Albuterol/Ipratropium (Albuterol/Ipratropium 3 Ml Ampul) 3 ml INH NOW ONE Stop: 04/19/25 13:41 Last Admin: 04/19/25 13:47 Dose: 3 ml Documented By: VERONICA Diphenhydramine HCl (Diphenhydramine 50 Mg/Ml Vial) 50 mg IV NOW ONE Stop: 04/19/25 13:50 Last Admin: 04/19/25 13:51 Dose: 50 mg Documented By: DAVID Sodium Chloride (Normal Saline 0.9%) 1,000 mls @ 1,000 mls/hr IV BOLUS ONE Stop: 04/19/25 11:59 Last Admin: 04/19/25 11:51 Dose: Not Given Documented By: CHRIS Lactated Ringer's (Lactated Ringers) 1,000 mls @ 1,000 mls/hr IV BOLUS ONE Stop: 04/19/25 12:10 Last Infusion: 04/19/25 13:18 Dose: Infused Documented By: Admin: 04/19/25 11:32 Dose: 1,000 mls/hr Documented By: DAVID Lactated Ringer's (Lactated Ringers) 1,000 mls @ 1,000 mls/hr IV BOLUS ONE Stop: 04/19/25 12:11 Last Admin: 04/19/25 13:45 Dose: 1,000 mls/hr Documented By: CHRIS Ceftriaxone Sodium 2,000 mg/ (Sodium Chloride) 100 mls @ 200 mls/hr IV NOW ONE Stop: 04/19/25 11:14 Last Infusion: 04/19/25 12:17 Dose: Infused Documented By: Admin: 04/19/25 11:32 Dose: 200 mls/hr Documented By: DAVID Ceftriaxone Sodium 1,000 mg/ (Sodium Chloride) 100 mls @ 200 mls/hr IV Q24H TICO Ceftriaxone Sodium 1,000 mg/ (Sodium Chloride) 100 mls @ 200 mls/hr IV Q24H TICO Ibuprofen (Ibuprofen 400 Mg Tablet) 800 mg PO NOW ONE Stop: 04/19/25 13:44 Last Admin: 04/19/25 14:13 Dose: 800 mg Documented By: DAVID Methylprednisolone (Methylprednisolone Succ 125 Mg/2 Ml Vial) 125 mg IV NOW ONE Stop: 04/19/25 13:41 Last Admin: 04/19/25 13:43 Dose: 125 mg Documented By: CHRIS Ondansetron HCl (Ondansetron 4 Mg/2 Ml Inj) 4 mg IV NOW PRN PRN Reason: Nausea And Vomiting Last Admin: 04/19/25 11:32 Dose: 4 mg Documented By: DAVID Ondansetron HCl (Ondansetron 4 Mg/2 Ml Inj) 4 mg IV NOW PRN PRN Reason: Nausea And Vomiting Last Admin: 04/19/25 13:26 Dose: 4 mg Documented By: DARIUS Ondansetron HCl (Ondansetron 4 Mg Odt) 4 mg PO NOW PRN PRN Reason: Nausea And Vomiting Vital Signs Vital signs: Vital Signs - 8 hr 04/19/25 10:54 04/19/25 11:31 04/19/25 11:38 Temperature 98.7 F Pulse Rate 111 H 101 H Respiratory Rate 20 21 Blood Pressure 125/76 110/70 Pulse Oximetry 96 95 Oxygen Delivery Method Room Air Oxygen Flow Rate 04/19/25 11:38 04/19/25 12:00 04/19/25 12:00 Temperature Pulse Rate 101 H 95 H Respiratory Rate 23 19 Blood Pressure 111/69 Pulse Oximetry 96 96 Oxygen Delivery Method Oxygen Flow Rate 04/19/25 12:30 04/19/25 12:30 04/19/25 13:00 Temperature Pulse Rate 92 H Respiratory Rate 23 Blood Pressure 108/69 112/71 Pulse Oximetry 95 Oxygen Delivery Method Oxygen Flow Rate 04/19/25 13:00 04/19/25 13:30 04/19/25 13:31 Temperature Pulse Rate 96 H 145 H Respiratory Rate 25 H 46 H Blood Pressure 153/118 H Pulse Oximetry 97 88 L Oxygen Delivery Method Oxygen Flow Rate 04/19/25 13:31 04/19/25 14:00 04/19/25 14:02 Temperature Pulse Rate 145 H 146 H 144 H Respiratory Rate 38 H 30 H 24 Blood Pressure Pulse Oximetry 82 L 95 96 Oxygen Delivery Method Nasal Cannula Nasal Cannula Oxygen Flow Rate 2 2 04/19/25 14:13 04/19/25 14:25 04/19/25 14:25 Temperature 101.1 F H Pulse Rate 145 H Respiratory Rate 33 H Blood Pressure 123/58 L Pulse Oximetry 92 Oxygen Delivery Method Oxygen Flow Rate 04/19/25 14:26 04/19/25 14:26 04/19/25 14:30 Temperature Pulse Rate 143 H Respiratory Rate 34 H Blood Pressure 120/60 116/60 Pulse Oximetry 93 Oxygen Delivery Method Oxygen Flow Rate 04/19/25 14:30 Temperature Pulse Rate 143 H Respiratory Rate 32 H Blood Pressure Pulse Oximetry 92 Oxygen Delivery Method Oxygen Flow Rate Sepsis Evaluation (ED) Triage Screening Sepsis Screen: Possible Sepsis Risk Level 1 - Infection Sepsis Infection Criteria Present: Suspected New Infection Response It is my opinion that this patient have a likely infectious etiology for meeting sepsis criteria: Does Fluid calculation based on 30 mL/kg within 1hr of criteria: ABW used Antibiotics initiated within 1 hr of Sepis dx: Yes Tissue Perfusion Reassessed within 6 hrs of infusion start time: Yes Date of Tissue Perfusion Reassessment completed: 04/19/25 Time Tissue Perfusion Reassessment completed: 18:24 MDM - Sepsis Lab Data 04/19/25 11:05 04/19/25 11:05 Labs: Lab Results 04/19/25 Range/Units 11:05 WBC 11.5 H (4.5-11.0) X10^3/uL RBC 4.54 (4.5-5.9) X10^6/uL Hgb 13.6 (13.5-17.5) g/dL Hct 39.2 L (41-53) % MCV 86.4 (80-100) fL MCH 29.9 (26-34) PG MCHC 34.6 (30-36) % RDW 13.5 (11.6-14.8) % Plt Count 174 (150-400) X10^3/uL Neut % (Auto) 92.5 H (50-75) % Lymph % (Auto) 1.0 L (25-40) % [place] % (Auto) 6.0 (3-14) % Eos % (Auto) 0.1 L (2-4) % Baso % (Auto) 0.4 (0-2) % Neut # (Auto) 62854 H (1415-6074) /uL Lymph # (Auto) 100 L (3750-9381) /uL [place] # (Auto) 700 (0-900) /uL Eos # (Auto) 0 (0-450) /uL Baso # (Auto) 0 (0-100) /uL PT 13.9 H (9.4-12.5) SECONDS INR 1.2 (0.9-1.3) APTT 31 (25.1-36.5) SECONDS Sodium 128 L (137-145) mmol/L Potassium 3.6 (3.4-5.1) mmol/L Chloride 98 (98-107) mmol/L Carbon Dioxide 22 (22-32) mmol/L BUN 26 H (9-20) mg/dL Creatinine 1.32 H (0.66-1.25) mg/dL Estimated GFR > 60 (>60) mL/min BUN/Creatinine Ratio 19.7 (6-22) Glucose 141 H (70-99) mg/dL Lactate 1.3 (0.7-2.1) mmol/L Calcium 8.6 (8.4-10.2) mg/dL Total Bilirubin 2.0 H (0.2-1.3) mg/dL AST 59 (17-59) IU/L ALT 69 H (<50) IU/L Alkaline Phosphatase 90 (38-126) U/L Troponin I 0.053 H (0.01-0.034) ng/mL Total Protein 7.1 (6.3-8.2) g/dL Albumin 3.7 (3.5-5.0) g/dL Globulin 3.4 (1.7-4.1) g/dL Albumin/Globulin Ratio 1.1 (1.0-2.8) Lipase 70 (23-300) U/L Procalcitonin 17.8 H (<0.5) ng/mL Urine Color [place] Urine Appearance Clear Urine pH 5.5 (4.5-8.0) Ur Specific [place] 1.015 (1.000-1.035) Urine Protein 1+ H (Negative) Urine Glucose (UA) Negative (Negative) g/dL Urine Ketones Negative (NEGATIVE) Urine Occult Blood Trace-intact (Negative) Urine Nitrate Negative (Negative) Urine Bilirubin 1+ H (NEGATIVE) Ur Bilirubin Confirm Negative (Negative) Urine Urobilinogen 2.0 H (0.2) E.U./dL Ur Leukocyte Esterase Negative (NEGATIVE) Urine RBC None seen (0-5/HPF) Urine WBC None seen (0-5/HPF) Ur Squamous Epith Cells None seen (0-5/HPF) Urine Bacteria None seen (None) Hyaline Casts 1-5/lpf (None) Ur Culture Indicated? Cult not indicated Vol Urine Centrifuged 10ml (spun) SARS-CoV-2 (PCR) Negative (Negative) Influenza A (RT-PCR) Flu a negative (NEGATIVE) Influenza B (RT-PCR) Flu b negative (NEGATIVE) RSV (PCR) Negative (Negative) Imaging Data Chest x-ray: Radiologist's Impression: [address] [address] XRay Report Signed Patient: Marco Schneider MR#: [id number] : 1960 Acct:[id number] Age/Sex: 64 / M Date of Service: 04/19/25 Loc: ED Accession Number: [id number] Procedure: XR chest 1V Ordering Provider: Bigg Lay D.O. PROCEDURE: XR CHEST 1V INDICATIONS: suspected sepsis TECHNIQUE: One view of the chest was acquired. COMPARISON: None. FINDINGS: Surgical changes and devices: None. Lungs and pleura: Lungs are clear. No pleural effusions or pneumothorax. Mediastinum: Mediastinal contours appear normal. Heart size is normal. Bones and chest wall: No suspicious bony lesions. Overlying soft tissues appear unremarkable. IMPRESSION: No acute cardiopulmonary abnormality is seen. ECG Data Interpretation: Sinus Tach HR 102 OR 158 QRS [address]-t wave change No previous EKG to compare MDM Narrative Medical decision making narrative: All lab work, vital signs, agricultural scientist note, previous ER visits, and all imaging studies reviewed. WBC 11.5 hemoglobin 13.6 platelet 174 INR 1.2 sodium 128 has not 3.6 chloride 98 respirations 22 BUN 26 creatinine 1.32 glucose 141 take acid 1.3 procalcitonin 17.8 urine showed +1 protein +1 bilirubin and 2.0 urobilinogen COVID flu RSV negative. Differential diagnosis COVID flu RSV pneumonia sepsis UTI. Patient given Rocephin, Zithromax, Tylenol, ibuprofen, Benadryl, Solu-Medrol, LR 1L bolus x 2 and NS 1L bolus x1 here case discussed with Dr. Gordon who has graciously accepted the patient for inpatient admission. Discharge Plan Departure Patient Disposition: Admitted as Observation Clinical Impression: Pneumonia Qualifiers: Pneumonia type: due to Pneumococcus Laterality: bilateral Lung location: lower lobe of lung Qualified Code(s): J13 - Pneumonia due to Streptococcus pneumoniae Admit Date/Time: 04/19/25 14:40 Admit Provider: Nicol Gordon
[2025-04-19 11:32] LABS: Add Manual Diff / Slide Review NO; Hematocrit 39.2 % (41-53); Hemoglobin 13.6 g/dL (13.5-17.5); Lymphocytes Absolute Auto 100 /uL (1100-4500); Mean Corpuscular HGB Conc 34.6 % (30-36); Mean Corpuscular Hemoglobin 29.9 PG (26-34); Mean Corpuscular Volume 86.4 fL (80-100); Platelet Count 174 X10^3/uL (150-400)
[2025-04-19] MEDS: cefTRIAXone 2,000 MG in SODIUM CHLORIDE 0.9% 100 ML 200 MG IV (11:32)
[2025-04-19] MEDS: LACTATED RINGERS 1,000 ML 1000 ML IV ×2 (11:32→13:45)
[2025-04-19] MEDS: ONDANSETRON 4 MG/2 ML INJ IV ×2 (11:32→13:26)
[2025-04-19 11:39] LABS: INR 1.2 (0.9-1.3); Prothrombin Time 13.9 SECONDS (9.4-12.5)
[2025-04-19 11:42] LABS: Alanine Aminotransferase 69 IU/L (<50); Albumin 3.7 g/dL (3.5-5.0); Albumin Globulin Ratio 1.1 (1.0-2.8); Alkaline Phosphatase 90 U/L (38-126); Blood Urea Nitrogen 26 mg/dL (9-20); Calcium 8.6 mg/dL (8.4-10.2); Carbon Dioxide 22 mmol/L (22-32); Chloride 98 mmol/L (98-107); Estimated Glomerular Filt Rate > 60 mL/min (>60); Globulin 3.4 g/dL (1.7-4.1); Glucose 141 mg/dL (70-99); HEMOLYSIS < 15 (0-50); Lipase 70 U/L (23-300); PTT Partial Thromboplastin Tim 31 SECONDS (25.1-36.5); Potassium 3.6 mmol/L (3.4-5.1); Sodium 128 mmol/L (137-145); Total Protein 7.1 g/dL (6.3-8.2)
[2025-04-19 11:43] LABS: Lactate (Lactic Acid) 1.3 mmol/L (0.7-2.1)
[2025-04-19 11:59] LABS: Procalcitonin 17.8 ng/mL (<0.5)
[2025-04-19 12:23] LABS: Influenza A - CEPHEID Flu A NEGATIVE (NEGATIVE); Influenza B - CEPHEID Flu B NEGATIVE (NEGATIVE)
[2025-04-19 12:24] LABS: COVID-19 CEPHEID 4-PLEX PCR Negative (Negative)
[2025-04-19 12:40] LABS: Appearance Urine UA CLEAR; Bilirubin Urine UA 1+ (NEGATIVE); Color Urine UA ORANGE; Glucose Urine UA NEGATIVE (Negative); Ketones Urine UA NEGATIVE (NEGATIVE); Leukocyte Esterase Urine UA NEGATIVE (NEGATIVE); Nitrite Urine UA NEGATIVE (Negative); Occult Blood Urine UA TRACE-INTACT (Negative); Protein Urine UA 1+ (Negative); Specific Gravity Urine UA 1.015 (1.000-1.035); Urobilinogen Urine UA 2.0 E.U./dL (0.2); pH Urine UA 5.5 (4.5-8.0)
[2025-04-19 12:42] LABS: Ictotest Urine Negative (Negative)
[2025-04-19 12:43] LABS: Culture Indicated Urine Cult Not Indicated
[2025-04-19] MEDS: methylPREDNISolone succ 125 MG/2 ML VIAL IV (13:43)
[2025-04-19] MEDS: ALBUTEROL/IPRATROPIUM 3 ML AMPUL INH (13:47)
[2025-04-19] MEDS: diphenhydrAMINE 50 MG/ML VIAL IV (13:51)
--- NOTE | 2025-04-19 13:52 | EKG_ITS ---
[facility] [address] [place] [address] Test Date: 2025-04-19 Pat Name: Marco Schneider Department: Room: 203 Gender: Male Transitional Care Nurse: SUZANNA : 1960 Requested By: Order Number: [id number] Reading MD: Bigg Christine MD Measurements Intervals [place] Rate: 163 P: WI: QRS: 11 QRSD: 96 T: 55 QT: 290 QTc: 477 Interpretive Statements Critical Test Result: High HR Supraventricular tachycardia ST & T wave abnormality, consider lateral ischemia Electronically Signed On 04-20-2025 7:48:40 PDT by Bigg Christine MD
--- NOTE | 2025-04-19 13:56 | EKG_ITS ---
[place] [id number], [place] [address] Test Date: 2025-04-19 Pat Name: Marco Schneider Department: Room: 203 Gender: Male [employer] Teacher: : 1960 Requested By: Order Number: [id number] Reading MD: Bigg Christine MD Measurements Intervals [place] Rate: 153 P: IA: 120 QRS: 3 QRSD: 98 T: 42 QT: 318 QTc: 507 Interpretive Statements Critical Test Result: High HR Sinus tachycardia Nonspecific T wave abnormality Electronically Signed On 04-23-2025 7:18:35 PDT by Bigg Christine MD
[2025-04-19] MEDS: IBUPROFEN 400 MG TABLET 800 MG PO (14:13)
[2025-04-19] MEDS: ACETAMINOPHEN 325 MG TABLET 975 MG PO (14:13)
--- NOTE | 2025-04-19 14:20 | PC.NURSE ---
patient tempt prior to apap and ibu/ 103.1
[2025-04-19 15:43] LABS: Troponin I 0.053 ng/mL (0.01-0.034)
[2025-04-19] MEDS: AZITHROMYCIN 500 MG in DEXTROSE 5% IN WATER 250 ML 250 MG IV (16:46)
[2025-04-19] MEDS: SODIUM CHLORIDE 0.9% 1,000 ML 100 ML IV (16:46)
--- NOTE | 2025-04-19 20:07 | PM.HP.1 ---
History of Present Illness History of Present Illness Chief complaint: Sick 4days, fever 102-104 deg, chills, no appetite Narrative: 64-year-old male with history of skin cancer, overactive bladder, depression who presented to the emergency department with 4 day history of a febrile illness. He reports he began feeling ill 4 days prior to admission. He went to work that day and felt reasonably well. That evening, he states he cooked dinner but could only eat about half of it which was unusual for him. He also fell asleep by 8:00 a.m. at night which was unusual. He states the next day he had fevers and chills alternating throughout the day. He states the next day the symptoms continued. He did take an occasional Tylenol. Yesterday he states he scheduled the Tylenol throughout the day and seemed to have improved symptoms. He states his maximum temperature yesterday was 102. The previous day it was up to 104. He thought he was getting better but today he states it increased again to 104. He called [facility] and spoke to the triage nurse who felt uncertain about the potential cause. After he spoke to the on-call physician who recommended he come to the emergency department, the patient subsequently presented here. On his arrival in the emergency department he was initially afebrile at 98.7 with a heart rate of 111, blood pressure 125/76, O2 sats 96% on room air. Over the course of his time in the emergency department, he did develop increased tachycardia up to the 160s, developed shaking chills, dry cough, and fever to 101.2. After he received treatment for his fever inclusive of acetaminophen and ibuprofen, his heart rate came down to 145. His respiratory rate was as high as 46. His oxygen saturation dropped as low as 82%. He did notably have blood pressures dropped down into the upper 90s systolic. Labs were performed which revealed a white blood cell count of 11.5, sodium was 128, creatinine was 1.32 with a BUN of 26, glucose was 141, total bilirubin was 2.0, ALT 69, troponin I 0.053, procalcitonin 17.8. Urinalysis revealed 1+ protein, 1+ bilirubin, otherwise negative. COVID, flu a, flu B, and RSV were negative. Chest x-ray was done which revealed no acute cardiopulmonary process. However, on my review there does appear to be some mild interstitial change noted in the bases. EKG revealed sinus tachycardia. Blood cultures were obtained and are presently pending. In the emergency department, he received 2 doses of IV Zofran, 1 dose of oral Zofran, 2 L of lactated Ringer's, 1 L of normal saline, ceftriaxone 2 g, azithromycin 500 mg, Solu-Medrol 125 mg IV, DuoNeb x1, acetaminophen 975 mg, ibuprofen 800 mg, Benadryl 50 mg IV. The Benadryl was given due to some concern that he had a reaction to the ceftriaxone, as he became tachycardic, tachypneic, and developed a cough. However, that was the pattern he had had at home when he developed a fever. Patient reports he has not had any ill exposures. He has had mild sore throat and mild nasal congestion. He did have some mild diarrhea at the onset of his symptoms. He does have some nausea but denies any emesis. He reports decreased appetite, decreased fluid intake. He reports significant fatigue. No dysuria, frequency, urgency, flank pain. He notes he was on a farm a week ago with friends picking apples and using a side or press. He expressed concern as there was a significant amount of goose feces on the farm. He expressed concern about AV and flu and requested testing. He additionally was on a hunting and camping trip a couple of weeks ago with his son. He denies any known tick exposures or insect bites. He has not had any rash. [facility] Medical History (Updated 04/19/25 @ 18:12 by Bigg Lay DO) Neoplasm of uncertain behavior of skin Plantar fasciitis of left foot OAB (overactive bladder) Elbow fracture Joint effusion, toe Depression Left knee injury Family History Father Age: 100 Mental health problem Mother Heart disease Hypertension Mental health problem Stroke Social History household members: spouse Smoking Status: Never smoker alcohol intake: current Meds Home Medications and Allergies Home Medications ?Medication ?Instructions ?Recorded ?Confirmed ?Type ibuprofen 200 mg tablet 400 mg PO Q6H PRN Pain 12/16/19 04/19/25 History naproxen sodium 220 mg tablet 220 mg PO DAILY PRN Pain 12/16/19 04/19/25 History oxybutynin chloride 5 mg tablet 5 mg PO DAILY #90 tabs 11/19/23 04/19/25 Rx Allergies Allergy/AdvReac Type Severity Reaction Status Date / Time No Known Drug Allergies Allergy Verified 04/19/25 16:37 Review of Systems Review of Systems Narrative: All other systems were reviewed negative Exam Vital Signs (past 8 hours): - 04/19/25 12:30 04/19/25 12:30 04/19/25 13:00 Temperature Pulse Rate 92 H Respiratory Rate 23 Blood Pressure 108/69 112/71 Pulse Oximetry 95 Oxygen Delivery Method Oxygen Flow Rate 04/19/25 13:00 04/19/25 13:30 04/19/25 13:31 Temperature Pulse Rate 96 H 145 H Respiratory Rate 25 H 46 H Blood Pressure 153/118 H Pulse Oximetry 97 88 L Oxygen Delivery Method Oxygen Flow Rate 04/19/25 13:31 04/19/25 14:00 04/19/25 14:02 Temperature Pulse Rate 145 H 146 H 144 H Respiratory Rate 38 H 30 H 24 Blood Pressure Pulse Oximetry 82 L 95 96 Oxygen Delivery Method Nasal Cannula Nasal Cannula Oxygen Flow Rate 2 2 04/19/25 14:13 04/19/25 14:25 04/19/25 14:25 Temperature 101.1 F H Pulse Rate 145 H Respiratory Rate 33 H Blood Pressure 123/58 L Pulse Oximetry 92 Oxygen Delivery Method Oxygen Flow Rate 04/19/25 14:26 04/19/25 14:26 04/19/25 14:30 Temperature Pulse Rate 143 H Respiratory Rate 34 H Blood Pressure 120/60 116/60 Pulse Oximetry 93 Oxygen Delivery Method Oxygen Flow Rate 04/19/25 14:30 04/19/25 15:00 04/19/25 15:00 Temperature Pulse Rate 143 H 134 H Respiratory Rate 32 H 28 H Blood Pressure 103/55 L Pulse Oximetry 92 94 Oxygen Delivery Method Oxygen Flow Rate 04/19/25 15:30 04/19/25 15:30 04/19/25 16:00 Temperature 99.4 F Pulse Rate 125 H 126 H Respiratory Rate 27 H 15 Blood Pressure 99/59 L 98/54 L Pulse Oximetry 94 95 Oxygen Delivery Method Oxygen Flow Rate 1 04/19/25 16:40 04/19/25 16:41 04/19/25 17:49 Temperature 99.4 F 99.4 F Pulse Rate Respiratory Rate Blood Pressure Pulse Oximetry Oxygen Delivery Method Room Air Oxygen Flow Rate Oxygen Delivery Method Room Air Oxygen Flow Rate 1 Narrative Exam Narrative: GEN: Very pleasant middle-aged male, nontoxic appearing, Alert and oriented x3, no acute distress HEENT: Normocephalic, face symmetric, pupils equal round reactive to light, extraocular movements intact, sclerae anicteric, conjunctiva moderately injected bilaterally, nares patent, oropharynx reveals an intact soft and hard palate with moist mucous membranes, mild tonsillar erythema, dentition is fair NECK: Supple, no lymphadenopathy, thyroid without enlargement or nodularity, carotids no bruits CHEST: Respiratory excursions symmetric, mild bibasilar crackles, otherwise clear to auscultation bilaterally CV: Mildly tachycardic with regular rhythm, no murmurs, rubs, gallops, PMI nondisplaced ABD: Soft, nontender, nondistended, bowel sounds present in all 4 quadrants, no organomegaly or masses appreciated EXTR: Warm, well perfused, no clubbing/cyanosis/edema SKIN: Warm and dry, without rash NEURO: Alert and oriented x3, grossly intact Objective Labs 04/19/25 11:05 04/19/25 11:05 Labs: Laboratory Results - last 24 hr 04/19/25 11:05 WBC 11.5 H RBC 4.54 Hgb 13.6 Hct 39.2 L MCV 86.4 MCH 29.9 MCHC 34.6 RDW 13.5 Plt Count 174 Neut % (Auto) 92.5 H Lymph % (Auto) 1.0 L [place] % (Auto) 6.0 Eos % (Auto) 0.1 L Baso % (Auto) 0.4 Neut # (Auto) 33554 H Lymph # (Auto) 100 L [place] # (Auto) 700 Eos # (Auto) 0 Baso # (Auto) 0 PT 13.9 H INR 1.2 APTT 31 Sodium 128 L Potassium 3.6 Chloride 98 Carbon Dioxide 22 BUN 26 H Creatinine 1.32 H Estimated GFR > 60 BUN/Creatinine Ratio 19.7 Glucose 141 H Lactate 1.3 Calcium 8.6 Total Bilirubin 2.0 H AST 59 ALT 69 H Alkaline Phosphatase 90 Troponin I 0.053 H Total Protein 7.1 Albumin 3.7 Globulin 3.4 Albumin/Globulin Ratio 1.1 Lipase 70 Procalcitonin 17.8 H Urine Color [place] Urine Appearance Clear Urine pH 5.5 Ur Specific [place] 1.015 Urine Protein 1+ H Urine Glucose (UA) Negative Urine Ketones Negative Urine Occult Blood Trace-intact Urine Nitrate Negative Urine Bilirubin 1+ H Ur Bilirubin Confirm Negative Urine Urobilinogen 2.0 H Ur Leukocyte Esterase Negative Urine RBC None seen Urine WBC None seen Ur Squamous Epith Cells None seen Urine Bacteria None seen Hyaline Casts 1-5/lpf Ur Culture Indicated? Cult not indicated Vol Urine Centrifuged 10ml (spun) SARS-CoV-2 (PCR) Negative Influenza A (RT-PCR) Flu a negative Influenza B (RT-PCR) Flu b negative RSV (PCR) Negative Assessment & Plan Assessment & Plan narrative: 1. Sepsis Patient presents with sepsis of unclear etiology, as evidenced by fever, tachycardia, tachypnea, hypoxia, leukocytosis. While he did have some cough when he develops rigors and fever, he generally does not have any other localizing symptoms. At this time, will continue Rocephin and azithromycin. Respiratory viral panel has been sent and is pending. Jordy flu testing will be sent based on his request. He does have a very slight hyperbilirubinemia and mild elevation of his ALT, which is new compared with March 18. He does not have any abdominal complaints except for nausea. We will repeat labs tomorrow but if this persists, would consider obtaining an abdominal ultrasound or CT. 2. Hyponatremia Mild at 128. Will hydrate recheck in the morning. 3. Acute kidney injury Mild with a BUN of 26 and creatinine of 1.32. He does endorse a very poor appetite and poor intake over the last few days. He notes he has primarily been sleeping between episodes of fever and rigors. 4. Hyperglycemia Likely stress induced as he has no history of elevated blood sugars on previous labs. 5. Overactive bladder Will continue oxybutynin Code status Full Prophylaxis Low Josué score Disposition Admit to acute care Time-Based Coding :: [TOTAL MINUTES] spent with patient and on the chart (including review of chart, obtaining history, exam, reviewing outside data, placing orders, documenting exam and treatment plan, and counseling patient) on [DATE].
[2025-04-19 20:19] LABS: Coronavirus NL 63 Not Detected (Not Detect); SARS- CoV-2 Not Detected (Not Detecte)
[2025-04-19 21:05] LABS: Troponin I 0.294 ng/mL (0.01-0.034)
[2025-04-19 21:22] LABS: Lactate (Lactic Acid) 2.2 mmol/L (0.7-2.1)
[2025-04-19 22:38] LABS: Reflexed Lactate in 2 Hours Y
[2025-04-19 23:11] LABS: Lactate 2HR (Lactic Acid Rflx) 1.8 mmol/L (0.7-2.1)
[2025-04-20] MEDS: SODIUM CHLORIDE 0.9% 1,000 ML 100 ML IV ×2 (02:30→12:30)
[2025-04-20 02:56] LABS: Add Manual Diff / Slide Review NO; Hematocrit 34.3 % (41-53); Hemoglobin 11.8 g/dL (13.5-17.5); Lymphocytes Absolute Auto 200 /uL (1100-4500); Mean Corpuscular HGB Conc 34.5 % (30-36); Mean Corpuscular Hemoglobin 30.0 PG (26-34); Mean Corpuscular Volume 87.0 fL (80-100); Platelet Count 136 X10^3/uL (150-400)
[2025-04-20 03:00] VITALS: BP 94/63; PULSE 88; RESP 18; TEMP 36.5; O2SAT 93
[2025-04-20 03:10] LABS: Alanine Aminotransferase 58 IU/L (<50); Albumin 3.1 g/dL (3.5-5.0); Albumin Globulin Ratio 1.0 (1.0-2.8); Alkaline Phosphatase 79 U/L (38-126); Blood Urea Nitrogen 28 mg/dL (9-20); Calcium 8.3 mg/dL (8.4-10.2); Carbon Dioxide 25 mmol/L (22-32); Chloride 100 mmol/L (98-107); Estimated Glomerular Filt Rate > 60 mL/min (>60); Globulin 3.2 g/dL (1.7-4.1); Glucose 182 mg/dL (70-99); HEMOLYSIS < 15 (0-50); Magnesium 2.0 mg/dL (1.6-2.3); Potassium 3.9 mmol/L (3.4-5.1); Sodium 129 mmol/L (137-145); Total Protein 6.3 g/dL (6.3-8.2)
[2025-04-20 03:27] LABS: Troponin I 0.127 ng/mL (0.01-0.034)
[2025-04-20 07:00] VITALS: BP 99/68; PULSE 82; RESP 15; TEMP 36.5; O2SAT 95
--- NOTE | 2025-04-20 07:32 | P.PN_ITS ---
Subjective Subjective Interval history: Summary: (H&P) 64-year-old male with history of skin cancer, overactive bladder, depression who presented to the emergency department with 4 day history of a febrile illness. He reports he began feeling ill 4 days prior to admission. He went to work that day and felt reasonably well. That evening, he states he cooked dinner but could only eat about half of it which was unusual for him. He also fell asleep by 8:00 a.m. at night which was unusual. He states the next day he had fevers and chills alternating throughout the day. He states the next day the symptoms continued. He did take an occasional Tylenol. Yesterday he states he scheduled the Tylenol throughout the day and seemed to have improved symptoms. He states his maximum temperature yesterday was 102. The previous day it was up to 104. He thought he was getting better but today he states it increased again to 104. He called [facility] and spoke to the triage nurse who felt uncertain about the potential cause. After he spoke to the on-call physician who recommended he come to the emergency department, the patient subsequently presented here. On his arrival in the emergency department he was initially afebrile at 98.7 with a heart rate of 111, blood pressure 125/76, O2 sats 96% on room air. Over the course of his time in the emergency department, he did develop increased tachycardia up to the 160s, developed shaking chills, dry cough, and fever to 101.2. After he received treatment for his fever inclusive of acetaminophen and ibuprofen, his heart rate came down to 145. His respiratory rate was as high as 46. His oxygen saturation dropped as low as 82%. He did notably have blood pressures dropped down into the upper 90s systolic. Labs were performed which revealed a white blood cell count of 11.5, sodium was 128, creatinine was 1.32 with a BUN of 26, glucose was 141, total bilirubin was 2.0, ALT 69, troponin I 0.053, procalcitonin 17.8. Urinalysis revealed 1+ protein, 1+ bilirubin, otherwise negative. COVID, flu a, flu B, and RSV were negative. Chest x-ray was done which revealed no acute cardiopulmonary process. However, on my review there does appear to be some mild interstitial change noted in the bases. EKG revealed sinus tachycardia. Blood cultures were obtained and are presently pending. In the emergency department, he received 2 doses of IV Zofran, 1 dose of oral Zofran, 2 L of lactated Ringer's, 1 L of normal saline, ceftriaxone 2 g, azithromycin 500 mg, Solu-Medrol 125 mg IV, DuoNeb x1, acetaminophen 975 mg, ibuprofen 800 mg, Benadryl 50 mg IV. The Benadryl was given due to some concern that he had a reaction to the ceftriaxone, as he became tachycardic, tachypneic, and developed a cough. However, that was the pattern he had had at home when he developed a fever. Patient reports he has not had any ill exposures. He has had mild sore throat and mild nasal congestion. He did have some mild diarrhea at the onset of his symptoms. He does have some nausea but denies any emesis. He reports decreased appetite, decreased fluid intake. He reports significant fatigue. No dysuria, frequency, urgency, flank pain. He notes [place] was [place] a farm a week ago with friends picking apples and using a side or press. He expressed concern as there was a significant amount of goose feces on the farm. He expressed concern about AV and flu and requested testing. He additionally was on a hunting and camping trip a couple of weeks ago with his son. He denies any known tick exposures or insect bites. He has not had any rash. S: He was feeling somewhat better. His fevers have resolved. He is less fatigued. No myalgias, dysuria, rhinorrhea, cough, or sore throat. Respiratory PCR was negative. He was not has resolved and he did eat this morning. He was having intermittent wrist from rigors for about 4 days, blood cultures are pending. O: NAD, alert and oriented. Fluent speech. Lungs are clear, normal rate and effort. Heart is regular, no murmur gallop or rub. Abdomen is soft, non distended. Extremities are free of edema. IMAGING: CXR: No acute cardiopulmonary abnormality is seen. I reviewed the film, there was no acute infiltrate or cardiomegaly. A/P: 1. Sepsis (intermittent fevers and chills as well as rigors concerning for bacteremia), improving. Patient presents with sepsis of unclear etiology, as evidenced by fever, tachycardia, tachypnea, hypoxia, leukocytosis. While he did have some cough when he develops rigors and fever, he generally does not have any other localizing symptoms. At this time, will continue Rocephin and azithromycin. Respiratory viral panel has been sent and is pending. Jordy flu testing will be sent based on his request. He does have a very slight hyperbilirubinemia and mild elevation of his ALT, which is new compared with March 18. He does not have any abdominal complaints except for nausea. We will repeat labs tomorrow but if this persists, would consider obtaining an abdominal ultrasound or CT. 2. Hyponatremia, improving. Mild at 128. Will hydrate recheck in the morning. 3. Acute kidney injury, improving. Mild with a BUN of 26 and creatinine of 1.32. He does endorse a very poor appetite and poor intake over the last few days. He notes he has primarily been sleeping between episodes of fever and rigors. 4. Hyperglycemia, improving. Likely stress induced as he has no history of elevated blood sugars on previous labs. 5. Overactive bladder, stable. Will continue oxybutynin 6. Elevated troponin, 0.053, 0.294, 0.127. PLAN: -Continue Abx (ceftriaxone and azithromycin). -ECHO Code status Full Prophylaxis Low Josué score Exam Vital Signs (past 8 hours): - 04/20/25 03:00 Temperature 97.7 F Pulse Rate 88 Respiratory Rate 18 Blood Pressure 94/63 Pulse Oximetry 93 Oxygen Flow Rate 0 Oxygen Delivery Method Room Air Oxygen Flow Rate 0 Objective Labs 04/20/25 02:49 04/20/25 02:49 Labs: Laboratory Results - last 24 hr 04/19/25 04/19/25 04/19/25 11:05 18:26 20:20 WBC 11.5 H RBC 4.54 Hgb 13.6 Hct 39.2 L MCV 86.4 MCH 29.9 MCHC 34.6 RDW 13.5 Plt Count 174 Neut % (Auto) 92.5 H Lymph % (Auto) 1.0 L [place] % (Auto) 6.0 Eos % (Auto) 0.1 L Baso % (Auto) 0.4 Neut # (Auto) 37349 H Lymph # (Auto) 100 L [place] # (Auto) 700 Eos # (Auto) 0 Baso # (Auto) 0 PT 13.9 H INR 1.2 APTT 31 Sodium 128 L Potassium 3.6 Chloride 98 Carbon Dioxide 22 BUN 26 H Creatinine 1.32 H Estimated GFR > 60 BUN/Creatinine Ratio 19.7 Glucose 141 H Lactate 1.3 Calcium 8.6 Magnesium Total Bilirubin 2.0 H AST 59 ALT 69 H Alkaline Phosphatase 90 Troponin I 0.053 H 0.294 H* Total Protein 7.1 Albumin 3.7 Globulin 3.4 Albumin/Globulin Ratio 1.1 Lipase 70 Procalcitonin 17.8 H Urine Color [place] Urine Appearance Clear Urine pH 5.5 Ur Specific [place] 1.015 Urine Protein 1+ H Urine Glucose (UA) Negative Urine Ketones Negative Urine Occult Blood Trace-intact Urine Nitrate Negative Urine Bilirubin 1+ H Ur Bilirubin Confirm Negative Urine Urobilinogen 2.0 H Ur Leukocyte Esterase Negative Urine RBC None seen Urine WBC None seen Ur Squamous Epith Cells None seen Urine Bacteria None seen Hyaline Casts 1-5/lpf Ur Culture Indicated? Cult not indicated Vol Urine Centrifuged 10ml (spun) Chlamy pneumoniae PCR Not detected Adenovirus (PCR) Not detected B. pertussis DNA (PCR) Not detected B.parapertussis DNA PCR Not detected Coronavirus OC43 (PCR) Not detected Coronavirus HKU1 (PCR) Not detected Coronavirus 229E (PCR) Not detected SARS-CoV-2 (PCR) Negative Not detected Coronavirus NL63 (PCR) Not detected Human Metapneumovir PCR Not detected Influenza A (RT-PCR) Flu a negative Influenza Type A (PCR) Not detected Influenza B (RT-PCR) Flu b negative Influenza Type B (PCR) Not detected M. pneumoniae (PCR) Not detected Parainfluenza 1 (PCR) Not detected Parainfluenza 2 (PCR) Not detected Parainfluenza 3 (PCR) Not detected Parainfluenza 4 (PCR) Not detected RSV (PCR) Negative Not detected Entero/Rhino (PCR) Not detected 04/19/25 04/19/25 04/20/25 20:57 22:55 02:49 WBC 8.7 RBC 3.94 L Hgb 11.8 L Hct 34.3 L MCV 87.0 MCH 30.0 MCHC 34.5 RDW 14.1 Plt Count 136 L Neut % (Auto) 93.2 H Lymph % (Auto) 2.5 L [place] % (Auto) 4.0 Eos % (Auto) 0.1 L Baso % (Auto) 0.2 Neut # (Auto) 8100 H Lymph # (Auto) 200 L [place] # (Auto) 300 Eos # (Auto) 0 Baso # (Auto) 0 PT INR APTT Sodium 129 L Potassium 3.9 Chloride 100 Carbon Dioxide 25 BUN 28 H Creatinine 1.24 Estimated GFR > 60 BUN/Creatinine Ratio 22.6 H Glucose 182 H Lactate 2.2 H 1.8 Calcium 8.3 L Magnesium 2.0 Total Bilirubin 3.1 H AST 47 ALT 58 H Alkaline Phosphatase 79 Troponin I 0.127 H* Total Protein 6.3 Albumin 3.1 L Globulin 3.2 Albumin/Globulin Ratio 1.0 Lipase Procalcitonin Urine Color Urine Appearance Urine pH Ur Specific [place] Urine Protein Urine Glucose (UA) Urine Ketones Urine Occult Blood Urine Nitrate Urine Bilirubin Ur Bilirubin Confirm Urine Urobilinogen Ur Leukocyte Esterase Urine RBC Urine WBC Ur Squamous Epith Cells Urine Bacteria Hyaline Casts Ur Culture Indicated? Vol Urine Centrifuged Chlamy pneumoniae PCR Adenovirus (PCR) B. pertussis DNA (PCR) B.parapertussis DNA PCR Coronavirus OC43 (PCR) Coronavirus HKU1 (PCR) Coronavirus 229E (PCR) SARS-CoV-2 (PCR) Coronavirus NL63 (PCR) Human Metapneumovir PCR Influenza A (RT-PCR) Influenza Type A (PCR) Influenza B (RT-PCR) Influenza Type B (PCR) M. pneumoniae (PCR) Parainfluenza 1 (PCR) Parainfluenza 2 (PCR) Parainfluenza 3 (PCR) Parainfluenza 4 (PCR) RSV (PCR) Entero/Rhino (PCR) [facility], [facility] Medical History (Updated 04/19/25 @ 18:12 by Bigg Lay DO) Neoplasm of uncertain behavior of skin Plantar fasciitis of left foot OAB (overactive bladder) Elbow fracture Joint effusion, toe Depression Left knee injury Family History Father Age: 100 Mental health problem Mother Heart disease Hypertension Mental health problem Stroke Social History household members: spouse Smoking Status: Never smoker alcohol intake: current Assessment & Plan Time-Based Coding :: [TOTAL MINUTES] spent with patient and on the chart (including review of chart, obtaining history, exam, reviewing outside data, placing orders, documenting exam and treatment plan, and counseling patient) on [DATE].
[2025-04-20 11:00] VITALS: BP 102/71; PULSE 83; RESP 15; TEMP 36.5; O2SAT 96
--- NOTE | 2025-04-20 11:08 | DI.ECHO.S_ITS ---
[facility]+ [facility] : : [id number] : : [place] : : [id number] : : Phone: [phone] Echocardiogram Report + + :Name: MERON WALDEN Study Date: 04/21/2025 Height: 67 in : :Hospital ReadingLocation: Weight: 153 lb : : Gender: Male BSA: 1.8 m2 : :: 1960 Age: 64 yrs BP: 103/71 mmHg: :Reason For Study: ELEVATED TROPONIN : :Ordering Physician: MCKAYLA, : :CHRISTEL Kumar Performed By: Gallo Harmon : :Referring: CHRISTEL BLOCK : + + Interpretation Summary The ejection fraction is estimated to be 55-60%. The aortic root is mildly dilated. There is a linear echodensity noted in the ascending aorta. This is likely an artifact however if clinically relevant a CT scan may be requested to rule out an aortic dissection. Procedure: A two-dimensional transthoracic echocardiogram with color flow and Doppler was performed. The study quality was technically good. There is no prior echocardiogram noted for this patient. The patient was in normal sinus rhythm during the exam. Left Ventricle: The left ventricle is normal in size. Left ventricular wall thickness is borderline increased. There is no ventricular septal defect visualized. The ejection fraction is estimated to be 55-60%. There are no focal wall motion abnormalities. Diastolic parameters suggest probable normal left ventricular diastolic function and normal filling pressures. Right Ventricle: The right ventricle is mildly dilated. There has been no significant change since the previous study. Atria: The left atrium is moderately dilated. The right atrium is mildly dilated. There is no Doppler evidence for an interatrial shunt. Mitral Valve: There is mild mitral annular calcification. There is mild mitral regurgitation. Aortic Valve: The aortic valve is trileaflet. The aortic valve opens well. There is mild aortic regurgitation. Tricuspid Valve: The tricuspid valve leaflets are thin and pliable. There is mild tricuspid regurgitation. Pulmonic Valve: The pulmonic valve leaflets are thin and pliable; valve motion is normal. There is trace pulmonic regurgitation. Great Vessels: The aortic root is mildly dilated. There is a linear echodensity noted in the ascending aorta. This is likely an artifact however if clinically relevant a CT scan may be requested to rule out an aortic dissection. The dimensions of the ascending aorta are normal. The pulmonary artery is normal size. The IVC is of normal diameter and collapses greater than 50% with a sniff. This suggests a low right atrial pressure of 3 mm Hg. Pericardium/ Pleura There is no pericardial effusion. There is no pleural effusion. MMode/2D Measurements & Calculations LVIDd: 5.0 cm LVOT diam: 2.2 cm LVIDs: 3.6 cm Ao root diam: 3.8 cm FS: 27.9 % asc Aorta Diam: 3.2 cm EPSS: 1.0 cm IVSd: 1.1 cm LVPWd: 1.0 cm LV garcia. diameter/BSA (cm/m^2): 2.8 LV sys. diameter/BSA (cm/m^2): 2.0 LA A2 area: 21.9 cm2 RA long axis: 5.8 cm LA A4 area: 20.6 cm2 RA area: 20.7 cm2 LA length (vol): 5.8 cm RA vol: 62.9 ml LA vol: 66.1 ml RA : 34.8 ml/m2 LA vol index: 36.6 ml/m2 IVC diam: 2.0 cm RVD1 (basal): 4.7 cm RVD2 (mid): 3.4 cm TAPSE: 2.3 cm Doppler Measurements & Calculations Ao V2 max: 143.7 cm/sec LVOT Max Rico: 83.2 cm/sec Ao V2 mean: 106.2 cm/sec LV V1 max P.8 mmHg Ao max P.3 mmHg LV V1 VTI: 18.7 cm Ao mean P.9 mmHg FAMILIA(I,D): 2.4 cm2 Ao V2 VTI: 29.5 cm FAMILIA(V,D): 2.2 cm2 sev ratio: 0.64 FAMILIA indexed to BSA (cm^2/m^2): 1.3 MV E max rico: 70.1 cm/sec TR max rico: 230.0 cm/sec MV A max rico: 74.0 cm/sec TR max P.2 mmHg MV E/A: 0.95 PA V2 max: 90.8 cm/sec Med Peak E' Rico: 5.1 cm/sec PA V2 mean: 63.2 cm/sec E/E' med: 13.8 PA mean P.8 mmHg Lat Peak E' Rico: 11.6 cm/sec PA pr(Accel): 41.3 mmHg E/E' lat: 6.0 E/e' average: 9.9 MV dec time: 0.14 sec SV(LVOT): 71.3 ml Reading Physician:10:43 AM
[2025-04-20 14:30] VITALS: BMI 23.9
--- NOTE | 2025-04-20 14:33 | PC.NURSE ---
Patient pleasant, afebrile thus far. He is independent in his room. Sivakumar denies pain or discomfort, he had a bowel movement today and is playing cards with his son now.
--- NOTE | 2025-04-20 15:16 | DI.US.S_ITS ---
PROCEDURE: US ABDOMEN LIMITED INDICATIONS: Fever and high bilirubin TECHNIQUE: Real-time scanning was performed of the abdominal and retroperitoneal organs, with image documentation. COMPARISON: None. FINDINGS: Liver: Liver is mildly enlarged and measures 18.8 cm in length. Normal liver parenchymal echotexture is seen. No discrete solid appearing hepatic lesion. Gallbladder: Contracted gallbladder. No gallstones or gallbladder wall thickening. No pericholecystic fluid. No sonographic Pineda sign. Biliary ducts: Intrahepatic bile ducts are non-dilated. Extrahepatic bile duct caliber measures 4.2 mm. Normal is 6-7 mm or less in diameter, or 10 mm or less post-cholecystectomy. Pancreas: Visualized portions of the pancreas are sonographically normal. Miscellaneous: No free abdominal fluid. IMPRESSION: 1. Contracted gallbladder. No cholelithiasis or sonographic evidence of acute cholecystitis. No biliary ductal dilatation. 2. Mild hepatomegaly. Normal liver parenchymal echotexture. No discrete hepatic lesion. Dictated by: Lebron Baez M.D. on 04/20/2025 at 17:32 Approved by: Lebron Baez M.D. on 04/20/2025 at 17:36
--- NOTE | 2025-04-20 15:59 | CM.DANOTE ---
Patient is a 64 yo male who was admitted OBS Status on 04/19/25 for Sepsis of unknown etiology. Pt has [employer] for insurance and his PCP is Dr. Gino Jolly at [facility]. EMR was reviewed. Per MD, pt with hx of skin CA and depression and admitted with sepsis, KAVITA, and hyponatremia. Cultures pending. SW met bedside with pt, spouse, and adult son and explained role and pt confirms he lives at home in [place] with his and both are active and independent at baseline. Pt drives and does not use DME for ambulation and no hx of SNF or HH. 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 Pt confirms preference is to discharge home with spouse and states he is finally feeling much better and they do not anticipate any d/c needs. SW answered a few questions regarding OBS Status and UR RN kindly met with them bedside and answered questions as well. Plan: SW to follow closely for plan of discharge home tomorrow if medically stable and any further identified discharge planning needs. SOCORRO Goodrich Discharge Planning/Care Management Advanced directive, confirm from FAMILY Start: 04/19/25 17:21 Freq: Q24H Status: Active Protocol: Document 04/19/25 17:21 AKT (Rec: 04/19/25 17:21 AKT Desktop) Advance Directive, confirm on record Time 17:21 Person contacted spouse to bring in Copy received No CM Discharge Assessment Start: 04/19/25 15:06 Freq: Status: Active Protocol: Document 04/20/25 15:57 BF (Rec: 04/20/25 15:59 BF [id number]) Discharge Planning Assessment Assigned Discharge SOCORRO [place] [employer] Mason Helper Provider Gino Jolly Insurance [place] DPOA/Assigned spouse Ilda Jo Designee Name Contact Information [phone] Advance Directives? Yes Advance Directives No on File History Provided By Patient,Significant Other,Medical Record Has Patient been No admitted in last 30 days? Prior Living House Arrangements Household Members spouse Type of Drives own vehicle transporation used prior to admit Independent with ADL Yes 's Is patient alert and Yes oriented? Caregiver for No Another Barriers to No Discharge Discharge Plan Home Referrals Initiated None needed Whiteboard Updated Yes in Patient Room with name and ext. # of Claims Technician Review Status In Process Please Provide Date 04/20/25 Initial DC Assessment Was Performed Next Review Type Continued Stay Review
[2025-04-20] MEDS: AZITHROMYCIN 500 MG in DEXTROSE 5% IN WATER 250 ML 250 MG IV (16:31)
[2025-04-20 18:42] VITALS: BP 111/76; PULSE 83; RESP 16; TEMP 37.2; O2SAT 96
[2025-04-20 19:00] VITALS: BP 101/65; PULSE 77; RESP 20; TEMP 37; O2SAT 96
[2025-04-20] MEDS: SODIUM CHLORIDE 0.9% FLUSH 10 ML IV (20:36)
[2025-04-20 23:00] VITALS: BP 113/74; PULSE 74; RESP 18; TEMP 36.6; O2SAT 96
[2025-04-21 03:00] VITALS: BP 103/71; PULSE 73; RESP 18; TEMP 36.4; O2SAT 94
[2025-04-21 04:43] LABS: Add Manual Diff / Slide Review NO; Hematocrit 34.1 % (41-53); Hemoglobin 11.8 g/dL (13.5-17.5); Lymphocytes Absolute Auto 700 /uL (1100-4500); Mean Corpuscular HGB Conc 34.5 % (30-36); Mean Corpuscular Hemoglobin 29.8 PG (26-34); Mean Corpuscular Volume 86.4 fL (80-100); Platelet Count 190 X10^3/uL (150-400)
[2025-04-21 04:53] LABS: Alanine Aminotransferase 76 IU/L (<50); Albumin 2.9 g/dL (3.5-5.0); Albumin Globulin Ratio 1.0 (1.0-2.8); Alkaline Phosphatase 95 U/L (38-126); Blood Urea Nitrogen 32 mg/dL (9-20); Calcium 8.6 mg/dL (8.4-10.2); Carbon Dioxide 23 mmol/L (22-32); Chloride 109 mmol/L (98-107); Estimated Glomerular Filt Rate > 60 mL/min (>60); Globulin 3.0 g/dL (1.7-4.1); Glucose 119 mg/dL (70-99); HEMOLYSIS < 15 (0-50); Potassium 4.0 mmol/L (3.4-5.1); Sodium 136 mmol/L (137-145); Total Protein 5.9 g/dL (6.3-8.2)
[2025-04-21] MEDS: SODIUM CHLORIDE 0.9% FLUSH 10 ML IV (06:16)
[2025-04-21 08:00] VITALS: BP 123/75; PULSE 66; RESP 18; TEMP 36.2; O2SAT 98
--- NOTE | 2025-04-21 10:59 | PC.NURSE ---
Assess-Patient is doing well this day....He had an Echo and we are waiting for the results of this and then patient will most likely go home.
--- NOTE | 2025-04-21 11:03 | DI.CT.S_ITS ---
PROCEDURE: CT ANGIO CHEST INDICATIONS: R/O Aortic dissection (see ECHO report from today) TECHNIQUE: After the administration of intravenous contrast, 2 mm thick sections acquired from the pulmonary apices to the posterior costophrenic angles. 3-dimensional maximum intensity projection (MIP) coronal and sagittal reformats were then acquired through the thorax. For radiation dose reduction, the following was used: automated exposure control, adjustment of mA and/or kV according to patient size. COMPARISON: no prior CT chest for comparison. Comparison can be made to report from echocardiogram 04/21/2025. FINDINGS: Image quality: Diagnostic. Some images are limited by beam hardening, motion or other artifacts. As noted on the prior echocardiogram report mild dilatation of the aortic root measuring up to 3.[address] evidence of dissection. Artifacts from pulsation and motion limit the exam. Ascending aorta measures approximately 3.5 cm. Aortic arch measures 2.5 cm. Descending aorta 2.5 cm. Incidental note is made of multiple areas of heterogeneous low- attenuation in the thoracic spine for example on the sagittal images it approximately 1.7 cm low-attenuation in the posterior aspect of 7 T7 vertebral body (sees series 10, image 82 as well as multiple areas of low-attenuation in T9 (series 10, image 87). Also a 1 cm sclerotic density is noted in T6 (series 10, image 87). Findings are non- specific however are worrisome for lytic lesions with a single sclerotic lesion, infiltrative process, metastases, lymphoma or other cause. Nuclear medicine bone scan or MRI thoracic spine would be useful for further evaluation. Follow-up is needed. Moderate cardiomegaly with four-chamber enlargement. Mild bibasilar subsegmental atelectasis and patchy opacities. No pneumothorax, no pleural effusion, no pericardial effusion. Symmetric anterior chest wall soft tissue attenuation measuring up to 2 cm, gynecomastia. Images in the upper abdomen demonstrate no significant abnormalities. Pulmonary arteries: Pulmonary arteries are not well evaluated due to timing of the contrast bolus more for the aorta. Lower Neck: No enlarged lymph nodes. Thyroid: No thyroid nodules which require sonographic follow up, per consensus guidelines. Axillae: Numerous small scattered less than 6 mm bilateral axillary lymph nodes. No abnormally enlarged lymph nodes greater than 1 cm short axis. Mediastinum and [place]: No enlarged lymph nodes. Esophagus: No wall thickening. No hiatal hernia. Upper Abdomen: Visualized upper abdomen solid organs and bowel loops appear normal. IMPRESSION: Mildly dilated aortic root and ascending aorta unchanged. No CT evidence of dissection Incidental note is made of numerous heterogeneous mixed low attenuation and sclerotic lesions in the spine as discussed above suspicious for metastases, infiltrative process or other cause. Follow-up is needed Dictated by: Dave Antonio M.D. on 04/21/2025 at 12:39 Approved by: Dave Antonio M.D. on 04/21/2025 at 12:59
--- NOTE | 2025-04-21 11:03 | CM.DPC ---
DCP Cont. Reviewed EMR and team rounds for pt's medical status and updates. Pt will be cleared for medical discharge home following his ECHO early this afternoon. His will transport him home. No further CM d/c resources or needs identified at this time.
[2025-04-21 12:00] VITALS: BP 124/78; PULSE 82; RESP 18; TEMP 37.2; O2SAT 96
--- NOTE | 2025-04-21 13:23 | DI.RAD.S_ITS ---
PROCEDURE: XR THORACIC SPINE 2V INDICATIONS: Possible bone abnormalitities on CTA TECHNIQUE: 3 views of the thoracic spine were acquired. COMPARISON: [facility], CT, CT ANGIO CHEST, 04/21/2025, 11:32. FINDINGS: Bones: No fractures or dislocations. No suspicious bony lesions. 12 pairs of ribs are noted, and appear intact where visualized. Soft tissues: No paravertebral stripe thickening. IMPRESSION: No significant plain film abnormality is seen. The bony lesions seen on the CT performed earlier in the day are not well seen on this plain film study. If it would be helpful for clinical management decision making, please consider a dedicated thoracic spine MRI (without and with contrast) for further evaluation (assuming that there is no contraindication). Dictated by: Levi Martinez M.D. on 04/21/2025 at 14:04 Approved by: Levi Martinez M.D. on 04/21/2025 at 14:06
[2025-04-21] MEDS: AZITHROMYCIN 500 MG in DEXTROSE 5% IN WATER 250 ML 250 MG IV (15:38)
--- NOTE | 2025-04-21 16:18 | PM.DS.1 ---
History of Present Illness History of Present Illness Chief complaint: Sick 4days, fever 102-104 deg, chills, no appetite Narrative: From H&P: 64-year-old male with history of skin cancer, overactive bladder, depression who presented to the emergency department with 4 day history of a febrile illness. He reports he began feeling ill 4 days prior to admission. He went to work that day and felt reasonably well. That evening, he states he cooked dinner but could only eat about half of it which was unusual for him. He also fell asleep by 8:00 a.m. at night which was unusual. He states the next day he had fevers and chills alternating throughout the day. He states the next day the symptoms continued. He did take an occasional Tylenol. Yesterday he states he scheduled the Tylenol throughout the day and seemed to have improved symptoms. He states his maximum temperature yesterday was 102. The previous day it was up to 104. He thought he was getting better but today he states it increased again to 104. He called [facility] and spoke to the triage nurse who felt uncertain about the potential cause. After he spoke to the on-call physician who recommended he come to the emergency department, the patient subsequently presented here. On his arrival in the emergency department he was initially afebrile at 98.7 with a heart rate of 111, blood pressure 125/76, O2 sats 96% on room air. Over the course of his time in the emergency department, he did develop increased tachycardia up to the 160s, developed shaking chills, dry cough, and fever to 101.2. After he received treatment for his fever inclusive of acetaminophen and ibuprofen, his heart rate came down to 145. His respiratory rate was as high as 46. His oxygen saturation dropped as low as 82%. He did notably have blood pressures dropped down into the upper 90s systolic. Labs were performed which revealed a white blood cell count of 11.5, sodium was 128, creatinine was 1.32 with a BUN of 26, glucose was 141, total bilirubin was 2.0, ALT 69, troponin I 0.053, procalcitonin 17.8. Urinalysis revealed 1+ protein, 1+ bilirubin, otherwise negative. COVID, flu a, flu B, and RSV were negative. Chest x-ray was done which revealed no acute cardiopulmonary process. However, on my review there does appear to be some mild interstitial change noted in the bases. EKG revealed sinus tachycardia. Blood cultures were obtained and are presently pending. In the emergency department, he received 2 doses of IV Zofran, 1 dose of oral Zofran, 2 L of lactated Ringer's, 1 L of normal saline, ceftriaxone 2 g, azithromycin 500 mg, Solu-Medrol 125 mg IV, DuoNeb x1, acetaminophen 975 mg, ibuprofen 800 mg, Benadryl 50 mg IV. The Benadryl was given due to some concern that he had a reaction to the ceftriaxone, as he became tachycardic, tachypneic, and developed a cough. However, that was the pattern he had had at home when he developed a fever. Patient reports he has not had any ill exposures. He has had mild sore throat and mild nasal congestion. He did have some mild diarrhea at the onset of his symptoms. He does have some nausea but denies any emesis. He reports decreased appetite, decreased fluid intake. He reports significant fatigue. No dysuria, frequency, urgency, flank pain. He notes he was on a farm a week ago with friends picking apples and using a side or press. He expressed concern as there was a significant amount of goose feces on the farm. He expressed concern about AV and flu and requested testing. He additionally was on a hunting and camping trip a couple of weeks ago with his son. He denies any known tick exposures or insect bites. He has not had any rash. Discharge Providers Provider Date of admission: 04/19/25 14:40 Discharge Date: 04/21/25 Primary care physician: Gino Jolly MD Discharge provider: Mikal Moser MD Summary Hospital Course Discharge Diagnosis: 1. Sepsis (intermittent fevers and chills as well as rigors concerning for bacteremia), resolved. Patient presented with sepsis of unclear etiology, as evidenced by fever, tachycardia, tachypnea, hypoxia, leukocytosis. While he did have some cough when he develops rigors and fever, he generally does not have any other localizing symptoms. At this time, will continue Rocephin and azithromycin. Respiratory viral panel has been sent and is pending. Jordy flu testing will be sent based on his request. He does have a very slight hyperbilirubinemia and mild elevation of his ALT, which is new compared with March 18. He does not have any abdominal complaints except for nausea. We will repeat labs tomorrow but if this persists, would consider obtaining an abdominal ultrasound or CT. 2. Hyponatremia, improved. Mild at 128. Will hydrate recheck in the morning. 3. Acute kidney injury, improved. Mild with a BUN of 26 and creatinine of 1.32. He does endorse a very poor appetite and poor intake over the last few days. He notes he has primarily been sleeping between episodes of fever and rigors. 4. Hyperglycemia, improving. Likely stress induced as he has no history of elevated blood sugars on previous labs. 5. Overactive bladder, stable. Will continue oxybutynin 6. Elevated troponin, 0.053, 0.294, 0.127. 7. Other liver function tests, normalized. 8. CT angiogram revealed a normal aorta and abnormal bone signal in the thoracic spine that was read as concerning for infiltrative process of the spine. PSA normal in the last several months. Hospital Course: The patient was admitted with fever without clear source. It was history included rigors. She will chest x-ray and UA were negative. He did have elevated LFTs with a bilirubin of 3.1. He was treated with empiric antibiotics and had good improvement of all symptoms and good energy on the 2nd day. Ultrasound of the abdomen was negative for evidence of bile duct pathology or cholecystitis. His LFTs normalized over the next 24 hours. He also had a mild troponin bump and has no known history of CAD. An echo was obtained which was unremarkable with normal EF and no wall motion abnormalities. However, there was an echo signal in the proximal aorta that was likely an artifact but it was somewhat unclear. Recommendations for a CTA angiogram to evaluate the aorta led to findings of a mildly dilated ascending aorta with no evidence of dissection or thrombus. However the CT signals of the thoracic spine bone were deemed abnormal and there was concern for infiltrative process. Chest x-ray bony structures were reviewed this was unremarkable. A thoracic spine two view x-ray was obtained with a normal read. All of this was shared with the patient, no further workup at this time. I did let the patient know that we would want to re-evaluate his labs next week and that there still might be consideration of further imaging of the thoracic spine, such as an MRI. I also did recommend an outpatient stress test in the next several weeks after he recovers to further risk stratify him given his troponin elevations. Status at Discharge Cognitive/behavioral status at discharge: oriented Functional status at discharge: independent ambulation Overall status at discharge: patient is back to baseline Time Spent with Patient Time spent: Greater than 30 minutes Exam Vital Signs (past 8 hours): - 04/21/25 12:00 Temperature 99 F Pulse Rate 82 Respiratory Rate 18 Blood Pressure 124/78 Pulse Oximetry 96 Oxygen Flow Rate 0 Oxygen Delivery Method Room Air Oxygen Flow Rate 0 Narrative Exam Narrative: NAD, alert and oriented. Fluent speech. Lungs are clear, normal rate and effort. Heart is regular, no murmur gallop or rub. Abdomen is soft, non distended. Extremities are free of edema. Objective ECG Impression: Rate: 102 P: 51 NE: 158 QRS: 19 QRSD: 108 T: 41 QT: 336 QTc: 437 Interpretive Statements Sinus tachycardia Nonspecific T wave abnormality Imaging Multiple studies:: Radiologist's impression: Thoracic spine x-ray: No significant plain film abnormality is seen. The bony lesions seen on the CT performed earlier in the day are not well seen on this plain film study. If it would be helpful for clinical management decision making, please consider a dedicated thoracic spine MRI (without and with contrast) for further evaluation (assuming that there is no contraindication). Chest CTA: Mildly dilated aortic root and ascending aorta unchanged. No CT evidence of dissection Incidental note is made of numerous heterogeneous mixed low attenuation and sclerotic lesions in the spine as discussed above suspicious for metastases, infiltrative process or other cause. Follow-up is needed Abdomen ultrasound: 1. Contracted gallbladder. No cholelithiasis or sonographic evidence of acute cholecystitis. No biliary ductal dilatation. 2. Mild hepatomegaly. Normal liver parenchymal echotexture. No discrete hepatic lesion. Echo: The ejection fraction is estimated to be 55-60%. The aortic root is mildly dilated. There is a linear echodensity noted in the ascending aorta. This is likely an artifact however if clinically relevant a CT scan may be requested to rule out an aortic dissection. Labs 04/21/25 04:05 04/21/25 04:05 Labs: Laboratory Results - last 24 hr 04/21/25 04:05 WBC 12.1 H RBC 3.95 L Hgb 11.8 L Hct 34.1 L MCV 86.4 MCH 29.8 MCHC 34.5 RDW 13.9 Plt Count 190 Neut % (Auto) 82.7 H Lymph % (Auto) 6.1 L [place] % (Auto) 11.0 Eos % (Auto) 0.1 L Baso % (Auto) 0.1 Neut # (Auto) 57655 H Lymph # (Auto) 700 L [place] # (Auto) 1300 H Eos # (Auto) 0 Baso # (Auto) 0 Sodium 136 L Potassium 4.0 Chloride 109 H Carbon Dioxide 23 BUN 32 H Creatinine 1.03 Estimated GFR > 60 BUN/Creatinine Ratio 31.1 H Glucose 119 H Calcium 8.6 Total Bilirubin 0.6 AST 53 ALT 76 H Alkaline Phosphatase 95 Total Protein 5.9 L Albumin 2.9 L Globulin 3.0 Albumin/Globulin Ratio 1.0 PFSH Medical History Neoplasm of uncertain behavior of skin Plantar fasciitis of left foot OAB (overactive bladder) Elbow fracture Joint effusion, toe Depression Left knee injury Family History Father Age: 105 Mental health problem Mother Heart disease Hypertension Mental health problem Stroke Social History household members: spouse alcohol intake: current Discharge Assessment & Plan Assessment and Plan Assessment: 1. Symptoms of infection without clear etiology. 2. Transient elevated liver functions, improved. 3. Elevated troponin with normal echo. 4. Abnormal thoracic spine bony signals on CT scan with a normal two-view T-spine x-ray after. Plan of Treatment: Discharge on oral antibiotics, cefdinir b.i.d. for 5 more days. Close follow up with PCP. Recommended: 1. Repeat LFTs and CBC in the next week. 2. Risk stratification with a stress test in the next several weeks. 3. Surveillance of abnormal bone signals with CT and consideration of advanced imaging with MRI if there is any further concern. Discharge Plan Discharge Plan Patient Disposition: Home Provider Discharge Comment: Stable for discharge home. Discharge orders & Medications Prescriptions: New cefdinir 300 mg capsule 300 mg PO BID Qty: 10 0RF Continued ibuprofen 200 mg tablet 400 mg PO Q6H PRN (Reason: Pain) naproxen sodium 220 mg tablet 220 mg PO DAILY PRN (Reason: Pain) oxybutynin chloride 5 mg tablet 5 mg PO DAILY Qty: 90 3RF Follow up/Referrals: Gino Jolly MD [Primary Care Provider, [facility]] Discharge Health Status Multidrug resistant organism: No MDRO Diet/Activity/Treatments Diet: Regular Visit Report/Discharge Packet Instructions: DI for Fever (Symptom) -- Adult, Cefdinir Stand Alone Forms: Patient Portal/API Discharge Data Primary Care Provider: Gino Jolly Attending Provider: Nicol Gordon Admit Date/Time: 04/19/25 14:40
== END 2025-04-21 16:57 | disposition home or self-care (01) ==
LOC: ED 14:36 → AC 14:40
PROVIDERS: Hospitalist; Internal Medicine; Admitting Provider Family Medicine; Emergency Provider Family Medicine; PCP Family Medicine; Referring Provider Family Medicine; Visit Provider Family Medicine
DX: A41.9 Sepsis, unspecified organism (principal); E87.1 Hypo-osmolality and hyponatremia; R79.89 Other specified abnormal findings of blood chemistry; F41.9 Anxiety disorder, unspecified; N32.81 Overactive bladder; F32.A Depression, unspecified; E78.5 Hyperlipidemia, unspecified; R73.9 Hyperglycemia, unspecified
CPT/HCPCS: 36415; 71045; 71275; 72070; 76705; 80053; 81001; 83605; 83690; 83735; 84145; 84484; 85025; 85610; 85730; 87040; 87633; 87637; 93005; 93010; 93306; 94640; 96361; 96365; 96366; 96367; 96375; 96376; 99285; G0378; J0696; J1200; J2405; J2919; J7030; J7050; J7060; J7120; Q9967

== ENCOUNTER 2025-04-23 19:41 | Emergency (ER) | payer OTHER, SELFPAY ==
[2025-04-22 10:48] VITALS: BMI 23.9
[2025-04-23 19:54] VITALS: BP 132/72; PULSE 86; RESP 18; TEMP 37.6; O2SAT 98; BMI 24.3
--- NOTE | 2025-04-23 20:28 | DI.RAD.S_ITS ---
PROCEDURE: XR CHEST 1V INDICATIONS: suspected sepsis TECHNIQUE: One view of the chest was acquired. COMPARISON: [facility], CR, XR CHEST 1V, 04/19/2025, 11:35. FINDINGS: Surgical changes and devices: None. Lungs and pleura: Trace bilateral pleural effusion. No focal consolidation. Mediastinum: Mediastinal contours appear normal. Heart size is normal. Bones and chest wall: No suspicious bony lesions. Overlying soft tissues appear unremarkable. IMPRESSION: Trace bilateral effusion. Dictated by: Nahun Caldwell M.D. on 04/23/2025 at 20:52 Approved by: Nahun Caldwell M.D. on 04/23/2025 at 20:52
[2025-04-23 21:01] LABS: Hematocrit 38.6 % (41-53); Hemoglobin 13.0 g/dL (13.5-17.5); INR 1.1 (0.9-1.3); Lymphocytes Absolute Auto 1900 /uL (1100-4500); Mean Corpuscular HGB Conc 33.7 % (30-36); Mean Corpuscular Hemoglobin 29.7 PG (26-34); Mean Corpuscular Volume 88.0 fL (80-100); Platelet Count 389 X10^3/uL (150-400); Prothrombin Time 12.1 SECONDS (9.4-12.5)
[2025-04-23 21:03] LABS: PTT Partial Thromboplastin Tim 29 SECONDS (25.1-36.5)
[2025-04-23 21:06] LABS: Lactate (Lactic Acid) 1.2 mmol/L (0.7-2.1)
[2025-04-23 21:07] LABS: Alanine Aminotransferase 61 IU/L (<50); Albumin 3.6 g/dL (3.5-5.0); Albumin Globulin Ratio 1.0 (1.0-2.8); Alkaline Phosphatase 113 U/L (38-126); Blood Urea Nitrogen 14 mg/dL (9-20); Calcium 9.0 mg/dL (8.4-10.2); Carbon Dioxide 29 mmol/L (22-32); Chloride 102 mmol/L (98-107); Estimated Glomerular Filt Rate > 60 mL/min (>60); Globulin 3.6 g/dL (1.7-4.1); Glucose 125 mg/dL (70-99); HEMOLYSIS < 15 (0-50); Lipase 404 U/L (23-300); Potassium 4.1 mmol/L (3.4-5.1); Sodium 136 mmol/L (137-145); Total Protein 7.2 g/dL (6.3-8.2)
[2025-04-23 21:24] LABS: Procalcitonin 3.69 ng/mL (<0.5)
[2025-04-23 21:29] LABS: Add Manual Diff / Slide Review SLIDE REVIEW
[2025-04-23 21:32] LABS: RBC Morphology Normal Morphology
[2025-04-23 22:14] LABS: Influenza A - CEPHEID Flu A NEGATIVE (NEGATIVE); Influenza B - CEPHEID Flu B NEGATIVE (NEGATIVE)
[2025-04-23 22:15] LABS: COVID-19 CEPHEID 4-PLEX PCR Negative (Negative)
[2025-04-23 22:17] VITALS: TEMP 37.7
[2025-04-23] MEDS: SODIUM CHLORIDE 0.9% 1,000 ML 1000 ML IV (22:55)
[2025-04-23 23:00] VITALS: BP 134/78; PULSE 85; RESP 26; O2SAT 95
[2025-04-23 23:30] VITALS: BP 126/77; PULSE 83; RESP 22; O2SAT 96
--- NOTE | 2025-04-23 23:40 | PC.NURSE ---
Pt awake and alert sitting in ED stretcher speaking with and RN. No distress noted at tis time. Continued plan of care discussed. Pt remains connected to cardiac, resp, blod pressure, and pulse ox monitors with alarms on and audible. VS stable at this time. Call light within reach. No requests or complaints at this time.
--- NOTE | 2025-04-23 23:48 | ED.GENADULT ---
HPI - General Adult General Chief complaint: Fever Stated complaint: returning from 2 days ago, symptoms from sepsis Time Seen by Provider: 04/23/25 21:54 Source: patient, RN notes reviewed and old records reviewed Mode of arrival: Ambulatory Limitations: no limitations History of Present Illness HPI narrative: 64-year-old male history of skin cancer, overactive bladder, depression who was hospitalized for sepsis of unclear etiology with fever, tachycardia tachypnea hypoxia leukocytosis was treated with Rocephin and azithromycin has a mild elevation in liver enzymes but was improving. Patient was discharged home on cefdinir. Patient presents today with the acute onset of fatigue and chills with a T-max of a 100.5? at home. Patient states he did not have any shaking rigors like he did prior to his hospitalization. He denies any other symptoms no chest pain no shortness of breath. No nausea or vomiting. No abdominal back or flank pain. No new urinary symptoms. No rash or skin changes. Patient states he was feeling concerned as he felt quite sick during his hospitalization. He has felt improved since. Related Data Home Medications ?Medication ?Instructions ?Recorded ?Confirmed ibuprofen 200 mg tablet 400 mg PO Q6H PRN Pain 12/16/19 04/22/25 naproxen sodium 220 mg tablet 220 mg PO DAILY PRN Pain 12/16/19 04/22/25 Previous Rx's ?Medication ?Instructions ?Recorded oxybutynin chloride 5 mg tablet 5 mg PO DAILY #90 tabs 11/19/23 cefdinir 300 mg capsule 300 mg PO BID #10 caps 04/21/25 Allergies Allergy/AdvReac Type Severity Reaction Status Date / Time No Known Drug Allergies Allergy Verified 04/23/25 19:54 Review of Systems Review of Systems ROS Unobtainable: All systems reviewed & are unremarkable except as noted in HPI and below Patient History Medical History Neoplasm of uncertain behavior of skin Plantar fasciitis of left foot OAB (overactive bladder) Elbow fracture Joint effusion, toe Depression Left knee injury Family History Father Age: 105 Mental health problem Mother Heart disease Hypertension Mental health problem Stroke Social History household members: spouse Smoking Status: Former smoker alcohol intake: current Smoking Status: Former smoker alcohol intake frequency: a few times a week Exam Narrative Exam Narrative: GENERAL: Alert and oriented x three, male in mild distress HEENT: Head normocephalic, atraumatic, EOMI, pupils reactive, face symmetric, moist mucous membranes NECK: Supple, full range of motion, no meningeal signs CARDIOVASCULAR: Regular rate and rhythm without murmurs, rubs or gallops. RESPIRATORY: Breath sounds equal bilaterally, no wheezes rales or rhonchi. ABDOMEN: Soft, nontender. Nondistended. Normoactive bowel sounds all 4 quadrants. No guarding or rebound, rigidity, no mass : No CVA tenderness EXTREMITIES: Normal range of motion, no clubbing or edema. Neurovascularly intact NEUROLOGICAL: Cranial nerves II through XII grossly intact. Moving all extremities SKIN: Warm, dry, no petechiae, no rashes or lesions. Initial Vital Signs Initial Vital Signs: Vital Signs Temperature 99.6 F 04/23/25 19:54 Pulse Rate 86 04/23/25 19:54 Respiratory Rate 18 04/23/25 19:54 Blood Pressure 132/72 04/23/25 19:54 Pulse Oximetry 98 04/23/25 19:54 Oxygen Delivery Method Room Air 04/23/25 19:54 Course Orders Ordered: Discontinued Medications Sodium Chloride (Normal Saline 0.9%) 1,000 mls @ 1,000 mls/hr IV BOLUS ONE Stop: 04/23/25 21:27 Last Infusion: 04/23/25 23:59 Dose: Infused Documented By: Admin: 04/23/25 22:55 Dose: 1,000 mls/hr Documented By: ERICA Ondansetron HCl (Ondansetron 4 Mg/2 Ml Inj) 4 mg IV NOW PRN PRN Reason: Nausea And Vomiting Ondansetron HCl (Ondansetron 4 Mg Odt) 4 mg PO NOW PRN PRN Reason: Nausea And Vomiting Vital Signs Vital signs: Vital Signs - 8 hr 04/23/25 22:17 04/23/25 23:00 04/23/25 23:30 Temperature 99.9 F H Pulse Rate 85 83 Respiratory Rate 26 H 22 Blood Pressure 134/78 126/77 Pulse Oximetry 95 96 Oxygen Delivery Method Room Air Room Air 04/23/25 23:49 Temperature 99.3 F Pulse Rate Respiratory Rate Blood Pressure Pulse Oximetry Oxygen Delivery Method Medical Decision Making Lab Data 04/23/25 20:40 04/23/25 20:40 Labs: Lab Results 04/23/25 Range/Units 20:40 WBC 16.6 H (4.5-11.0) X10^3/uL RBC 4.39 L (4.5-5.9) X10^6/uL Hgb 13.0 L (13.5-17.5) g/dL Hct 38.6 L (41-53) % MCV 88.0 (80-100) fL MCH 29.7 (26-34) PG MCHC 33.7 (30-36) % RDW 14.4 (11.6-14.8) % Plt Count 389 (150-400) X10^3/uL Neut % (Auto) 78.4 H (50-75) % Lymph % (Auto) 11.3 L (25-40) % [place] % (Auto) 8.4 (3-14) % Eos % (Auto) 1.7 L (2-4) % Baso % (Auto) 0.2 (0-2) % Neut # (Auto) 98613 H (9019-1777) /uL Lymph # (Auto) 1900 (0081-7140) /uL [place] # (Auto) 1400 H (0-900) /uL Eos # (Auto) 300 (0-450) /uL Baso # (Auto) 0 (0-100) /uL RBC Morphology Normal morphology PT 12.1 (9.4-12.5) SECONDS INR 1.1 (0.9-1.3) APTT 29 (25.1-36.5) SECONDS Sodium 136 L (137-145) mmol/L Potassium 4.1 (3.4-5.1) mmol/L Chloride 102 (98-107) mmol/L Carbon Dioxide 29 (22-32) mmol/L BUN 14 (9-20) mg/dL Creatinine 0.94 (0.66-1.25) mg/dL Estimated GFR > 60 (>60) mL/min BUN/Creatinine Ratio 14.9 (6-22) Glucose 125 H (70-99) mg/dL Lactate 1.2 (0.7-2.1) mmol/L Calcium 9.0 (8.4-10.2) mg/dL Total Bilirubin 0.7 (0.2-1.3) mg/dL AST 31 (17-59) IU/L ALT 61 H (<50) IU/L Alkaline Phosphatase 113 (38-126) U/L Total Protein 7.2 (6.3-8.2) g/dL Albumin 3.6 (3.5-5.0) g/dL Globulin 3.6 (1.7-4.1) g/dL Albumin/Globulin Ratio 1.0 (1.0-2.8) Lipase 404 H D (23-300) U/L Procalcitonin 3.69 H (<0.5) ng/mL SARS-CoV-2 (PCR) Negative (Negative) Influenza A (RT-PCR) Flu a negative (NEGATIVE) Influenza B (RT-PCR) Flu b negative (NEGATIVE) RSV (PCR) Negative (Negative) Urine Dip Bedside Urine Glucose Negative Bedside Urine Bilirubin - Negative Bedside Urine Ketone - Negative Urine Specific [place] 1.010 Bedside Urine Occult Blood - Negative Bedside Urine pH 6.0 Bedside Urine Protein - Negative Bedside Urine Urobilinogen +/- 1mg Bedside Urine Nitrite - Negative Bedside Urine Leukocytes - Negative Esterase Point of care testing: Urine Dip Bedside Urine Glucose Negative Bedside Urine Bilirubin - Negative Bedside Urine Ketone - Negative Urine Specific [place] 1.010 Bedside Urine Occult Blood - Negative Bedside Urine pH 6.0 Bedside Urine Protein - Negative Bedside Urine Urobilinogen +/- 1mg Bedside Urine Nitrite - Negative Bedside Urine Leukocytes - Negative Esterase MDM Narrative Medical decision making narrative: Patient has a white count of 16.6 was 12 on 04/21, hemoglobin is 13 platelets are 389. Coags are negative sodium is 136 electrolytes BUN and creatinine are normal otherwise glucose is 125, ALT 61 was 76 on the . Lipase is 404. Procalcitonin is 3.69 has trended down from 17.8 on 04/19/2025. Chest x-ray shows trace bilateral pleural effusion no focal consolidation. Patient's blood cultures from 04/19/2025 were negative had repeat cultures obtained today. Point of care urine negative for nitrates or leuks. Spoke with patient white count is up from his hospitalization but his procalcitonin is significantly improved, he reports a temp of 100.5? at home and felt fatigued but no other symptoms. He has blood cultures pending after discussion we will discharge home but with strict return precautions. Patient is still taking his oral antibiotics as prescribed. Discharge Plan Departure Patient Disposition: Home Clinical Impression: History of recent hospitalization, Leukocytosis Activity Restrictions/Additional Instructions: Your labs today do show an elevation in your white blood cell count but your procalcitonin is significantly improved from your hospitalization. You do have blood cultures pending if these become positive you would be contacted to return to the emergency department. Continue your oral antibiotics until completed. Return to the emergency department if you have recurrent symptoms similar to your recent hospitalization, persistent fevers, any new chest pain or shortness of breath, vomiting, new abdominal back or flank pain or other new or concerning changes. Prescriptions: No Action ibuprofen 200 mg tablet 400 mg PO Q6H PRN (Reason: Pain) naproxen sodium 220 mg tablet 220 mg PO DAILY PRN (Reason: Pain) oxybutynin chloride 5 mg tablet 5 mg PO DAILY Qty: 90 3RF cefdinir 300 mg capsule 300 mg PO BID Qty: 10 0RF Referrals: Gino Jolly MD [Primary Care Provider, [facility]] Stand Alone Forms: Patient Portal/API
[2025-04-23 23:49] VITALS: TEMP 37.4
== END 2025-04-24 00:32 | disposition home or self-care (01) ==
PROVIDERS: Emergency Provider Emergency Medicine; PCP Family Medicine
DX: D72.829 Elevated white blood cell count, unspecified (principal); Z92.89 Personal history of other medical treatment; R00.0 Tachycardia, unspecified
CPT/HCPCS: 36415; 71045; 80053; 81003; 83605; 83690; 84145; 85025; 85610; 85730; 87040; 87637; 96360; 99284; J7030

== ENCOUNTER → 2025-04-30 09:11 | Outpatient (CLI) | payer OTHER, SELFPAY ==
[2025-04-22 10:48] VITALS: BMI 23.9
[2025-04-30 09:56] LABS: Add Manual Diff / Slide Review NO; Hematocrit 39.9 % (41-53); Hemoglobin 13.7 g/dL (13.5-17.5); Lymphocytes Absolute Auto 1600 /uL (1100-4500); Mean Corpuscular HGB Conc 34.2 % (30-36); Mean Corpuscular Hemoglobin 30.1 PG (26-34); Mean Corpuscular Volume 87.9 fL (80-100); Platelet Count 555 X10^3/uL (150-400)
[2025-04-30 10:18] LABS: Alanine Aminotransferase 28 IU/L (<50); Albumin 3.9 g/dL (3.5-5.0); Albumin Globulin Ratio 1.1 (1.0-2.8); Alkaline Phosphatase 89 U/L (38-126); Blood Urea Nitrogen 19 mg/dL (9-20); Calcium 9.5 mg/dL (8.4-10.2); Carbon Dioxide 26 mmol/L (22-32); Chloride 103 mmol/L (98-107); Estimated Glomerular Filt Rate > 60 mL/min (>60); Globulin 3.6 g/dL (1.7-4.1); Glucose 84 mg/dL (70-99); HEMOLYSIS < 15 (0-50); Potassium 4.7 mmol/L (3.4-5.1); Sodium 138 mmol/L (137-145); Total Protein 7.5 g/dL (6.3-8.2)
== END ==
PROVIDERS: PCP Family Medicine; Referring Provider Family Medicine; Visit Provider Family Medicine
DX: D72.829 Elevated white blood cell count, unspecified (principal); D64.9 Anemia, unspecified
CPT/HCPCS: 36415; 80053; 83615; 84155; 84156; 84165; 84166; 85025

== ENCOUNTER → 2025-05-03 13:10 | Outpatient (CLI) | payer OTHER, SELFPAY ==
[2025-04-22 10:48] VITALS: BMI 23.9
--- NOTE | 2025-05-03 13:11 | DI.MRI.S_ITS ---
PROCEDURE: MR THORACIC SPINE WO/W CON INDICATIONS: elevated trop TECHNIQUE: Noncontrast sagittal T1 spin echo and T2 fast spin echo, sagittal STIR, post- Gadolinium axial T1 spin echo with fat saturation through the thoracic and lumbar spines, with additional T2 fast spin echo and post-contrast axial T1 spin echo with fat saturation sequences acquired through levels of suspected cord compression. COMPARISON: [facility], CR, XR THORACIC SPINE 2V, 04/21/2025, 13:23. FINDINGS: Bones: Several rounded fat containing lesions noted scattered in the thoracic spine particularly at T3, T5, T7 T9 and L1, probably reflecting vertebral body hemangiomas. There is a sclerotic lesion at T4 as well probably reflects osteoma Spinal cord: Visualized spinal cord is normal in size and signal. Conus medullaris is normal in location. No enhancing epidural mass lesions. Paraspinous soft tissues: No paravertebral masses. IMPRESSION: Multifocal vertebral body lesions contain fat are most likely typical hemangiomas. Consider follow-up CT scan to confirm typical trabecular pattern Approved by: Shimon Argueta M.D. on 05/04/2025 at 17:57
== END ==
LOC: MRI 13:11
PROVIDERS: PCP Family Medicine; Referring Provider Family Medicine; Visit Provider Family Medicine
DX: Q78.2 Osteopetrosis (principal); M89.9 Disorder of bone, unspecified; D72.829 Elevated white blood cell count, unspecified; D64.9 Anemia, unspecified; R06.09 Other forms of dyspnea
CPT/HCPCS: 72157; A9579